=== PATIENT | female | born 1935 | race Two or more races ===

== ENCOUNTER 2016-08-23 22:44 | Inpatient (IN) | payer MEDICARE, OTHER ==
[~2016-08-23] VITALS: Ht 149.9 cm; Wt 59.0 kg
[2016-08-24 01:30] VITALS: BP 153/69
--- NOTE | 2016-08-24 01:30 | NUR ---
MS RN NOTE: RECEIVED PATIENT FROM [facility], NO ACUTE DISTRESS NOTED, FAMILY AT BEDSIDE. BREATHING EVEN AND UNLABORED, NO SOB NOTED. IV TO RIGHT WRIST IN PLACE. ORIENTED PATIENT TO ROOM AND USE OF CALL LIGHT. PATIENT HAS HOME MEDICATIONS, LISTED ALL MEDICATIONS AND ENTERED TO RECONCILED MEDICATIONS. PATIENT DAUGHTER WILL TAKE MEDICATIONS BACK HOME WITH WHEELCHAIR. AWAITING ADMIT ORDERS. BED LOCKED AND IN LOWEST POSITION, CALL LIGHT IN REACH. WILL CONTINUE TO MONITOR.
[2016-08-24] MEDS ORDERED: CLON0.1T PO (01:53)
[2016-08-24] MEDS ORDERED: BACL10TA PO (01:53)
[2016-08-24] MEDS ORDERED: FOLI1TAB16 PO (01:53)
[2016-08-24] MEDS ORDERED: ONDA4TAB11 PO (01:53)
[2016-08-24] MEDS ORDERED: SOLI5TAB PO (01:53)
[2016-08-24] MEDS ORDERED: OMEP40CA37 PO (01:53)
[2016-08-24] MEDS ORDERED: VALS160T24 PO (01:53)
[2016-08-24] MEDS ORDERED: ETOD400T2 PO (01:53)
[2016-08-24] MEDS ORDERED: ASPI-605 PO (01:53)
[2016-08-24] MEDS ORDERED: METO-302 PO (01:53)
[2016-08-24] MEDS ORDERED: ATOR20TA PO (01:53)
[2016-08-24] MEDS ORDERED: DEXT1TAB PO (01:58)
[2016-08-24] MEDS ORDERED: GUAI-671 PO (01:58)
[2016-08-24] MEDS ORDERED: ALBU18HF2 INH (01:58)
[2016-08-24 02:00] VITALS: BP 153/69
--- NOTE | 2016-08-24 02:30 | NUR ---
MS RN NOTE: CALLED COARSE WIRE DRAWER MD, AWAITING ADMIT ORDERS AND COARSE WIRE DRAWER MD TO CALL BACK. PATIENT RESTING IN BED, NO ACUTE DISTRESS NOTED. WILL CONTINUE TO MONITOR.
--- NOTE | 2016-08-24 05:30 | NUR ---
MS RN NOTE: CALLED ASSISTANT MEDIA PLANNER SERVICE AGAIN REGARDING ADMIT ORDERS. NO ORDERS ENTERED INTO SYSTEM YET. AWAITING CALL BACK. WILL CONTINUE TO MONITOR.
--- NOTE | 2016-08-24 07:05 | NUR ---
MS RN NOTE: RECEIVE CALL FROM ANSWERING SERVICE FOLLOWING UP IF TECHNOLOGY INTEGRATION SPECIALIST HAS CALLED BACK. INFORMED THAT HAVE NOT RECEIVED CALL BACK FROM DR. JACOBSEN. WILL ENDORSE TO DAY NURSE TO FOLLOW UP WITH DAY DOCTORS FOR ADMIT ORDER.
--- NOTE | 2016-08-24 07:08 | NUR ---
MS/RN AM NOTES RECEIVED PATIENT IN BED, AWAKE, ALERT, WITHOUT SOB, NO DISTRESS NOTED, DENIES PAIN. ON RA, SATURATING WELL, 95%. DR. JACOBSEN PAGED BY CHICKEN CLEANER NURSE FOR ORDER CLARIFICATIONS, AND CULLEN, AWAITING FOR RESPONSE. IV PERIPHERAL LINE ON RIGHT WRIST INTACT, PATENT. BED IN LOW POSITION, 2 SR UP FOR SAFETY, WITH CALL LIGHT WITHIJN EASY REACH. WILL CONTINUE TO MONITOR ACCORDINGLY.
[2016-08-24 08:00] VITALS: BP 139/66
[2016-08-24 10:00] VITALS: BP 153/69
[2016-08-24] MEDS ORDERED: MAG HYDROX/AL HYDROX/SIMETH 30 ML UDC PO PRN (11:30)
[2016-08-24] MEDS ORDERED: MAGNESIUM HYDROXIDE 30 ML UDC PO PRN (11:30)
[2016-08-24] MEDS ORDERED: HYDROCODONE/APAP 5/325MG 1 EACH TABLET PO PRN (11:30)
[2016-08-24] MEDS ORDERED: ACETAMINOPHEN 325 MG TABLET PO PRN (11:30)
[2016-08-24] MEDS ORDERED: ONDANSETRON 4 MG TAB.RAPDIS PO PRN (12:00)
[2016-08-24] MEDS ORDERED: CEFTRIAXONE 1 G VIAL IM SCH (12:00)
--- NOTE | 2016-08-24 12:08 | NUR ---
MS/RN NOTES DR. SRINIVASAN VISITED, EXAMINED PATIENT, WITH ORDERS ABDOMINAL US FOR ABDOMINAL PAIN, NPO STATUS INITIATED. URINE COLLECTED, SENT TO THE LAB. ALL ORDERS NOTED, CARRIED OUT, DAUGHTER MADE AWARE, SON AT THE BEDSIDE, WILL CONTINUE TO MONITOR ACCORDINGLY.
[2016-08-24] MEDS ORDERED: SECONDARY IV SET 1 EA INFUS.SET MC ONE (12:30)
[2016-08-24] MEDS ORDERED: IV SET PRIMARY PUMP SET 1 EA INFUS.SET MC ONE (12:30)
[2016-08-24] MEDS ORDERED: IV NS 0.9% 1,000 ML ONE (12:30)
[2016-08-24 12:37] LABS: BASOPHILS % (AUTO) 0.6 % (0.0-2.0); EOSINOPHILS # (AUTO) 0.2 /CMM (0.0-0.7); EOSINOPHILS % (AUTO) 2.2 % (0.0-6.0); HEMATOCRIT 35 % (33-45); HEMOGLOBIN 11.3 g/dL (11.5-14.8); LYMPHOCYTES # (AUTO) 1.1 /CMM (0.8-4.8); LYMPHOCYTES % (AUTO) 15.9 % (20.0-44.0); MEAN CORPUSCULAR HEMOGLOBIN 30 PG (26.0-33.0); MEAN CORPUSCULAR HGB CONC 33 g/dl (31.0-36.0); MEAN CORPUSCULAR VOLUME 92 fL (82-100); MONOCYTES # (AUTO) 0.5 /CMM (0.1-1.30); MONOCYTES % (AUTO) 7.9 % (2.0-12.0); NEUTROPHILS % (AUTO) 73.4 % (43.0-81.0); PLATELET COUNT (AUTO) 246 /CMM (150-450); RDW COEFFICIENT OF VARIATION 13.4 (11.5-15.0); RED BLOOD CELL COUNT(AUTO) 3.79 MIL/uL (4.0-5.2); WHITE BLOOD COUNT (AUTO) 6.8 K/uL (4.3-11.0)
[2016-08-24 12:46] LABS: CREATININE 1.4 mg/dL (0.6-1.3); PHOSPHORUS 5.9 mg/dL (2.5-4.9); POTASSIUM 4.5 mmol/L (3.5-5.1)
[2016-08-24] MEDS: TRAMADOL HCL 50 MG TABLET PO PRN (12:57)
--- NOTE | 2016-08-24 13:06 | NUR ---
MS/RN NOTES ABDOMINAL US COMPLETED, RESUMED PREVIOUS DIET PER DOCTOR'S ORDER
[2016-08-24] MEDS: CEFTRIAXONE 1 G in IV D5W 50 ML IV SCH (13:14)
[2016-08-24] MEDS ORDERED: BACLOFEN (10 MG) 10 MG TABLET PO SCH (15:00)
[2016-08-24] MEDS: BACLOFEN (10 MG) 10 MG TABLET PO SCH ×2 (15:06→21:22)
--- NOTE | 2016-08-24 15:26 | NUR ---
Social service consult requested by Dr. Jones for physican orders for life-sustaining treatment (POLST) document per patient request. SW met with patient and patient's daughter [Eliza, ]. Pt is an 80-year old South African speaking female. Pt was alert and oriented x4. SW provided the patient and her daughter with the POLST paperwork. Patient requested South African documents for translation purposes. SW provided the patient and her daughter with POLST paperwork in South African for translation and in Montenegrin to be completed. SW reviewed POLST document with patient and daughter. The patient and her daughter will complete the POLST document and have it signed by a physician.
[2016-08-24 16:00] VITALS: BP 166/71
[2016-08-24] MEDS: ONDANSETRON HCL/PF 4 MG/2 ML VIAL IVP PRN (16:55)
[2016-08-24] MEDS: METOPROLOL SUCCINATE 25 MG TAB.SR.24H PO SCH (16:59)
[2016-08-24] MEDS: OXYBUTYNIN CHLORIDE 5 MG TABLET PO SCH (17:00)
--- NOTE | 2016-08-24 17:03 | NUR ---
MS/RN NOTES PATIENT IS C/O NAUSEA NO EMESIS PRESENT, ZOFRAN GIVEN WITH EFFECTIVE RESULT
[2016-08-24 17:49] LABS: APPEARANCE,URINE SL CLOUDY (CLEAR); BILIRUBIN,URINE NEGATIVE (NEGATIVE); BLOOD, URINE NEGATIVE Ery/uL (NEGATIVE); COLOR,URINE YELLOW (YELLOW); KETONES,URINE NEGATIVE (NEGATIVE); LEUKOCYTE ESTERASE ,URINE 1+ (NEGATIVE); NITRITE, URINE POSITIVE (NEGATIVE); PH,URINE 5.5 (5.0-8.0); PROTEIN,URINE 1+ mg/dl (NEGATIVE); UGLUCOSE NEGATIVE (NEGATIVE); UROBILINOGEN,URINE 0.2 EU/dL (0.2)
[2016-08-24 18:08] LABS: ADD URINE CULTURE YES; BACTERIA,URINE Many /HPF (None Seen); RBC,URINE NONE SEEN /HPF (0-2); SQUAMOUS EPITHELIAL CELL,UR Few /HPF (None Seen); WBC,URINE 81-100 /HPF (0-3)
--- NOTE | 2016-08-24 18:12 | NUR ---
MS/RN CLOSING NOTES PATIENT IS AWAKE, ALERT, ABLE TO MAKE NEEDS KNOWN, DAUGHTER AT THE BEDSIDE. PATIENT IS ON RA, SATURATING WELL 96%. IV PERIPHERAL LINE ON RIGHT WRIST INTACT, PATENT WITH NS 0.9% 75 CC/H, TOLERATING WELL, NO S/SX FLUID OVERLOAD, ABLE TO WALK TO THE BATHROOM WITH WALKER. DENIES PAIN, KEPT CLEAN, DRY, COMFORTABLE, NEEDS MET IN TIMELY MANNER, WITH CALL LIGHT WITHIN EASY REACH. WILL ENDORSE TO THE COLLECTIONS REPRESENTATIVE NURSE ACCORDINGLY.
--- NOTE | 2016-08-24 19:40 | NUR ---
MS RN NOTE: PATIENT RESTING IN BED, NO ACUTE DISTRESS NOTED. BREATHING EVEN AND UNLABORED, NO SOB NOTED. IV TO RIGHT WRIST IN PLACE. BED LOCKED AND IN LOWEST POSITION, CALL LIGHT IN REACH. WILL CONTINUE TO MONITOR.
[2016-08-24 20:00] VITALS: BP 165/84
[2016-08-24] MEDS: IV NS 0.9% 1,000 ML IV PRN (21:22)
--- NOTE | 2016-08-25 02:04 | NUR ---
MS RN NOTE: PATIENT SLEEPING IN BED, NO ACUTE DISTRESS NOTED. BREATHING EVEN AND UNLABORED, NO SOB NOTED. IV TO RIGHT WRIST IN PLACE, INFUSING NS AT 75 ML/HR. BED LOCKED AND IN LOWEST POSITION, CALL LIGHT IN REACH. WILL CONTINUE TO MONITOR.
[2016-08-25] MEDS: BACLOFEN (10 MG) 10 MG TABLET PO SCH ×3 (05:46→20:47)
--- NOTE | 2016-08-25 06:07 | NUR ---
MS RN NOTE: PATIENT RESTING IN BED, NO ACUTE DISTRESS NOTED. BREATHING EVEN AND UNLABORED, NO SOB NOTED. IV TO RIGHT WRIST IN PLACE, INFUSING NS AT 75 ML/HR. BED LOCKED AND IN LOWEST POSITION, CALL LIGHT IN REACH. WILL ENDORSE TO DAY NURSE TO CONTINUE WITH PLAN OF CARE.
[2016-08-25 07:08] LABS: BASOPHILS % (AUTO) 0.6 % (0.0-2.0); EOSINOPHILS # (AUTO) 0.3 /CMM (0.0-0.7); EOSINOPHILS % (AUTO) 5.1 % (0.0-6.0); HEMATOCRIT 30 % (33-45); HEMOGLOBIN 9.9 g/dL (11.5-14.8); LYMPHOCYTES # (AUTO) 1.3 /CMM (0.8-4.8); LYMPHOCYTES % (AUTO) 19.9 % (20.0-44.0); MEAN CORPUSCULAR HEMOGLOBIN 30 PG (26.0-33.0); MEAN CORPUSCULAR HGB CONC 34 g/dl (31.0-36.0); MEAN CORPUSCULAR VOLUME 89 fL (82-100); MONOCYTES # (AUTO) 0.7 /CMM (0.1-1.30); MONOCYTES % (AUTO) 10.5 % (2.0-12.0); NEUTROPHILS # (AUTO) 4.2 /CMM (1.8-8.9); NEUTROPHILS % (AUTO) 63.9 % (43.0-81.0); PLATELET COUNT (AUTO) 217 /CMM (150-450); RDW COEFFICIENT OF VARIATION 12.9 (11.5-15.0); RED BLOOD CELL COUNT(AUTO) 3.32 MIL/uL (4.0-5.2); WHITE BLOOD COUNT (AUTO) 6.6 K/uL (4.3-11.0)
[2016-08-25 07:57] LABS: CALCIUM, SERUM 8.2 mg/dL (8.5-10.1); CREATININE 1.5 mg/dL (0.6-1.3); MAGNESIUM 1.8 mg/dL (1.8-2.4); PHOSPHORUS 5.5 mg/dL (2.5-4.9); POTASSIUM 4.7 mmol/L (3.5-5.1)
[2016-08-25 08:00] VITALS: BP 129/66
--- NOTE | 2016-08-25 08:00 | NUR ---
MS RN NOTES PATIENT IS IN BED, A/OX4. NO SOB ANY OR ANY S/S OF DISTRESS NOTED. IV IS INTACT AND PATENT. PATIENT DENIES ANY PAIN AT THIS TIME. BED IS IN LOW LOCKED POSITION. CALL LIGHT IS WITHIN REACH. WILL CONTINUE TO MONITOR THROUGHOUT SHIFT.
[2016-08-25] MEDS: FOLIC ACID 1 MG TABLET PO SCH (08:11)
[2016-08-25] MEDS: OXYBUTYNIN CHLORIDE 5 MG TABLET PO SCH ×2 (08:11→17:54)
[2016-08-25] MEDS: METOPROLOL SUCCINATE 25 MG TAB.SR.24H PO SCH ×2 (08:14→17:54)
--- NOTE | 2016-08-25 09:18 | NUR ---
CALLED PATIENT'S DAUGHTER, WEN. INFORMED HER TO BRING IN COMPLETED POLST FORM. DAUGHTER AGREED AND STATED SHE WOULD BRING IT IN LATE AFTERNOON.
--- NOTE | 2016-08-25 11:10 | NUR ---
PATIENT WAS COMPLAINING OF DIZZINESS AND NAUSEA. PATIENT DENIES HEADACHE OR ANY OTHER PAIN. BLOOD PRESSURE WAS AT 203/85. MANUALLY RECHECKED BLOOD PRESSURE AND BP WAS AT 210/70. MD MADE AWARE. ORDERED HYDRALAZINE PRN Q4H FOR SBP >170. WILL CARRY OUT ORDERS. WILL CONTINUE TO MONITOR PATIENT.
[2016-08-25] MEDS: hydrALAZINE HCL 25 MG TABLET PO PRN ×2 (11:21→21:35)
[2016-08-25] MEDS: CEFTRIAXONE 1 G in IV D5W 50 ML IV SCH (12:15)
[2016-08-25 16:00] VITALS: BP 153/58
[2016-08-25 19:00] VITALS: BP 151/74
--- NOTE | 2016-08-25 19:06 | NUR ---
MS RN NOTES PATIENT IS RESTING IN BED COMFORTABLY. PATIENT IS A/OX3. IV IS INTACT AND PATENT. PATIENT DENIES ANY SOB OR PAIN AT THIS TIME. NO DISTRESS NOTED. ALL NEEDS HAVE BEEN MET. BED IS IN LOW LOCKED POSITION. CALL LIGHT WITHIN REACH. WILL ENDORSE CARE TO PM SHIFT.
--- NOTE | 2016-08-25 19:20 | NUR ---
MS RN NOTES RECEIVED PT IN BED, WATCHING TV AT THIS TIME. A/O X 3, VERBALLY RESPONSIVE, MICRONESIAN SPEAKING. NO DISTRESS, NO SOB NOTED AT THIS TIME. DENIES ANY PAIN OR DISCOMFORT AT THIS TIME. PT IS AMBULATORY WITH FWW. ALL NEEDS ATTENDED. CALL LIGHT WITHIN REACH. SAFETY PRECAUTIONS OBSERVED. WILL CONTINUE TO MONITOR.
[2016-08-25] MEDS: TRAMADOL HCL 50 MG TABLET PO PRN (20:49)
[2016-08-25] MEDS: ATORVASTATIN 10 MG TABLET PO SCH (21:20)
[2016-08-25] MEDS: ONDANSETRON HCL/PF 4 MG/2 ML VIAL IVP PRN (21:26)
[2016-08-25 22:00] VITALS: BP_SYST 160; BP_SYST 190; BP_DIAS 73; BP_DIAS 78
[2016-08-26] MEDS: IV NS 0.9% 1,000 ML IV PRN (03:56)
[2016-08-26] MEDS: BACLOFEN (10 MG) 10 MG TABLET PO SCH ×3 (04:52→20:21)
--- NOTE | 2016-08-26 06:24 | NUR ---
MS RN NOTES PT IN BED, RESTING COMFORTABLY AT THIS TIME. AROUSES EASILY, A/O X 3, VERBALLY RESPONSIVE, BELIZEAN SPEAKING. NO DISTRESS, NO SOB NOTED AT THIS TIME. IV SITE ON RIGHT WRIST INTACT AND PATENT, NO S/S OF INFILTRATION NOTED. DENIES ANY PAIN OR DISCOMFORT AT THIS TIME. PT IS AMBULATORY WITH FWW. ALL NEEDS ATTENDED. CALL LIGHT WITHIN REACH. SAFETY PRECAUTIONS OBSERVED. WILL ENDORSE TO NEXT SHIFT FOR VIKAS.
[2016-08-26] MEDS: hydrALAZINE HCL 25 MG TABLET PO PRN (07:05)
[2016-08-26] MEDS: ONDANSETRON HCL/PF 4 MG/2 ML VIAL IVP PRN (07:07)
[2016-08-26] MEDS: METOPROLOL SUCCINATE 25 MG TAB.SR.24H PO SCH ×2 (07:49→16:38)
[2016-08-26 08:00] VITALS: BP 169/74
--- NOTE | 2016-08-26 08:00 | NUR ---
MS RN OPENING NOTES RECEIVED REPORT WITH PATIENT A/OX3. PATIENT IS RESTING IN BED. PATIENT COMPLAINING OF DIZZINESS AND NAUSEA. PM SHIFT ADMINISTERED HYDRALAZINE AND ZOFRAN. NO SOB NOTED. PATIENT DENIES PAIN. IV IS PATENT AND INTACT. BED IS IN LOW LOCKED POSITION. CALL LIGHT IS WITHIN REACH. WILL CONTINUE TO MONITOR THROUGHOUT SHIFT.
[2016-08-26] MEDS: OXYBUTYNIN CHLORIDE 5 MG TABLET PO SCH ×2 (08:41→16:37)
[2016-08-26] MEDS: FOLIC ACID 1 MG TABLET PO SCH (08:41)
[2016-08-26] MEDS ORDERED: AMLODIPINE BESYLATE 10 MG TABLET PO SCH (09:00)
[2016-08-26] MEDS ORDERED: hydrALAZINE HCL 25 MG TABLET PO PRN (10:30)
--- NOTE | 2016-08-26 10:45 | NUR ---
MS RN NOTES PATIENT BLOOD PRESSURE CURRENTLY AT 189/60. MD MADE AWARE AND WAS NOTIFIED OF THE PATIENT'S UPWARD TRENDING BP FLUCTUATIONS. ORDERS OBTAINED FROM DR. ARNOLD TO CONTINUE TO MONITOR PATIENT.
--- NOTE | 2016-08-26 10:50 | NUR ---
MS RN NOTES DR. RODAS WAS NOTIFIED OF PATIENT'S UPWARD TRENDING BLOOD PRESSURE FLUCTUATIONS. ORDERS RECEIVED AND WILL BE CARRIED OUT.
[2016-08-26] MEDS ORDERED: CLONIDINE HCL 0.1 MG TABLET PO PRN (11:00)
[2016-08-26] MEDS: NIFEdipine XL (30MG) 30 MG TAB PO SCH (11:20)
[2016-08-26] MEDS: CEFTRIAXONE 1 G in IV D5W 50 ML IV SCH (12:08)
[2016-08-26 16:00] VITALS: BP 114/50
--- NOTE | 2016-08-26 19:02 | NUR ---
MS RN CLOSING NOTES PATIENT IS A/O X3. PATIENT'S DAUGHTER AT THE BEDSIDE. IV IS PATENT AND INTACT. NO SOB OR S/S OF DISTRESS NOTED. BED IN LOW LOCKED POSITION. CALL LIGHT WITHIN REACH. ALL PATIENT NEEDS HAVE BEEN MET. WILL ENDORSE CARE TO PM SHIFT.
--- NOTE | 2016-08-26 19:30 | NUR ---
MS RN NOTES RECEIVED PT SITTING UP IN BED, AWAKE, WATCHING TV AT THIS TIME. A/O X 3 , VERBALLY RESPONSIVE.DAUGHTER WEN AT BEDSIDE. PT WITH NO DISTRESS , NO SOB AT THIS TIME. IV SITE ON RIGHT WRIST INTACT AND PATENT, WITH NO S/S OF INFILTRATION NOTED. IVF INFUSING WELL. DISCUSSED WITH THE PT AND THE DTR REGARDING PLAN OF CARE, VERBALIZES UNDERSTANDING. DENIES ANY PAIN OR DISCOMFORT AT THIS TIME. ALL NEEDS ATTENDED. CALL LIGHT WITHIN REACH . WILL CONTINUE TO MONITOR.
[2016-08-26 20:00] VITALS: BP 109/54
[2016-08-26] MEDS: TRAMADOL HCL 50 MG TABLET PO PRN (20:17)
[2016-08-26 22:00] VITALS: BP 129/69
[2016-08-26] MEDS ORDERED: BACLOFEN (10 MG) 10 MG TABLET PO SCH (22:00)
[2016-08-26] MEDS: ATORVASTATIN 10 MG TABLET PO SCH (22:27)
[2016-08-27] MEDS: BACLOFEN (10 MG) 10 MG TABLET PO SCH ×3 (05:23→21:02)
[2016-08-27 06:30] LABS: BASOPHILS % (AUTO) 0.2 % (0.0-2.0); EOSINOPHILS # (AUTO) 0.1 /CMM (0.0-0.7); EOSINOPHILS % (AUTO) 0.7 % (0.0-6.0); HEMATOCRIT 33 % (33-45); HEMOGLOBIN 11.1 g/dL (11.5-14.8); LYMPHOCYTES % (AUTO) 10.9 % (20.0-44.0); MEAN CORPUSCULAR HEMOGLOBIN 30 PG (26.0-33.0); MEAN CORPUSCULAR HGB CONC 34 g/dl (31.0-36.0); MEAN CORPUSCULAR VOLUME 89 fL (82-100); MONOCYTES # (AUTO) 0.8 /CMM (0.1-1.30); MONOCYTES % (AUTO) 8.3 % (2.0-12.0); NEUTROPHILS # (AUTO) 7.7 /CMM (1.8-8.9); NEUTROPHILS % (AUTO) 79.9 % (43.0-81.0); PLATELET COUNT (AUTO) 251 /CMM (150-450); RDW COEFFICIENT OF VARIATION 12.3 (11.5-15.0); RED BLOOD CELL COUNT(AUTO) 3.66 MIL/uL (4.0-5.2); WHITE BLOOD COUNT (AUTO) 9.6 K/uL (4.3-11.0)
--- NOTE | 2016-08-27 06:42 | NUR ---
MS RN NOTES PT RESTING IN BED, A/O X 3 , AROUSES EASILY, VERBALLY RESPONSIVE. PT WITH NO DISTRESS , NO SOB AT THIS TIME. IV SITE ON RIGHT WRIST INTACT AND PATENT, WITH NO S/S OF INFILTRATION NOTED. IVF INFUSING WELL. DENIES ANY PAIN OR DISCOMFORT AT THIS TIME. NO C/O N/V. ALL NEEDS ATTENDED. CALL LIGHT WITHIN REACH . WILL ENDORSE TO NEXT SHIFT FOR VIKAS.
[2016-08-27 07:01] LABS: CALCIUM, SERUM 7.9 mg/dL (8.5-10.1); CREATININE 1.1 mg/dL (0.6-1.3); MAGNESIUM 1.9 mg/dL (1.8-2.4); PHOSPHORUS 4.1 mg/dL (2.5-4.9); POTASSIUM 3.8 mmol/L (3.5-5.1)
--- NOTE | 2016-08-27 07:30 | NUR ---
AM RN NOTE Received patient sleeping comfortably in her bed arouses upon touch. Skin warm and dry to touch. IV site intact and patent. Bed in low locked position. Will continue to monitor.
[2016-08-27 08:00] VITALS: BP 136/71
[2016-08-27] MEDS: ONDANSETRON HCL/PF 4 MG/2 ML VIAL IVP PRN (08:06)
[2016-08-27] MEDS: OXYBUTYNIN CHLORIDE 5 MG TABLET PO SCH ×2 (08:07→16:04)
[2016-08-27] MEDS: FOLIC ACID 1 MG TABLET PO SCH (08:07)
[2016-08-27] MEDS: NIFEdipine XL (30MG) 30 MG TAB PO SCH (08:07)
[2016-08-27] MEDS: ASPIRIN EC 81 MG TABLET.DR PO SCH (08:07)
[2016-08-27] MEDS: CLONIDINE HCL 0.1 MG TABLET PO SCH (08:08)
[2016-08-27] MEDS: METOPROLOL SUCCINATE 25 MG TAB.SR.24H PO SCH ×2 (08:08→16:04)
[2016-08-27] MEDS: IV NS 0.9% 1,000 ML IV PRN (10:04)
[2016-08-27] MEDS: CEFTRIAXONE 1 G in IV D5W 50 ML IV SCH (11:41)
--- NOTE | 2016-08-27 12:12 | NUR ---
AM RN NOTE Patient's IV site noted with leakage, re inserted new site on RAC #22.
[2016-08-27 16:00] VITALS: BP 158/78
[2016-08-27] MEDS: LORAZEPAM 0.5 MG TABLET PO PRN (16:30)
--- NOTE | 2016-08-27 16:35 | NUR ---
AM RN NOTE Patient awake, anxious and holding side rails. Daughter at bedside and requesting for antianxiety medication. CN (West) made aware. V/S BP158/78 T98.0 P71 R18. Called [facility] [employer] WORKER FORGE with new order obtained for Ativan, noted and carried out. Medication given as ordered. Will continue to monitor.
--- NOTE | 2016-08-27 17:15 | NUR ---
AM RN NOTE Pt calm and resting in her bed with eyes closed. Daughter at bedside.
--- NOTE | 2016-08-27 18:41 | NUR ---
AM RN NOTE Patient sleeping in her bed comfortably, no acute distress noted. Family at bedside. Will endorse care to next shift.
--- NOTE | 2016-08-27 19:00 | NUR ---
MS RN NOTES RECEIVED PATIENT IN BED AWAKE, ALERT AND ORIENTED X 3. IN STABLE CONDITION NO S/S OF DISTRESS NOTED. VERBALLY RESPONSIVE WITH NO C/O PAIN OR DISCOMFORTS VOICED. IV SITE INTACT W/ NO S/S OF INFILTRATION NOTED. CALL LIGHT WITHIN REACH. BED AT LOW POSITION AND LOCKED FOR SAFETY. WILL CONTINUE TO MONITOR ACCORDINGLY.
[2016-08-27 20:00] VITALS: BP 101/43
[2016-08-27] MEDS: ATORVASTATIN 10 MG TABLET PO SCH (21:02)
[2016-08-28] MEDS: IV NS 0.9% 1,000 ML IV PRN (04:10)
[2016-08-28] MEDS: BACLOFEN (10 MG) 10 MG TABLET PO SCH ×2 (04:10→13:00)
--- NOTE | 2016-08-28 06:32 | NUR ---
MS RN CLOSING NOTES PATIENT COMFORTABLY IN BED ASLEEP AND EASILY AWAKEN, HEAD OF BED ELEVATED FOR BETTER LUNG EXPANSION AND BETTER CIRCULATION, TOLERATING ROOM AIR, SP02 96% R.A ALERT AND VERBALLY X 3 NO S/S OF DISTRESS, NORWEGIAN SPEAKING, NS AT 75CC/HR RUNNING TOLERATED WELL, IV SITE INTACT W/ NO S/S OF INFILTRATION NOTED. RESPIRATIONS EVEN UNLABORED BREATH SOUNDS. APICAL PULSE REGULAR; GOOD SKIN CARE PROVIDED. PATIENT IN STABLE CONDITION WITH NO SOB NO S/S OF DISTRESS NO NAUSEA AND VOMITING NO HEADACHE NO PAIN, NO CHEST PAIN SAFETY ENVIRONMENT PROVIDED. FREE OF CLUTTERS, SAFE HAZARD FREE ENVIRONMENT. NEEDS ATTENDED AND ANTICIPATED, NURSING CARE RENDERED, KEPT CLEAN AND DRY AND COMFORTABLE. ALL DUE MEDS WAS GIVEN. CALL LIGHT IN REACH, BED LOWERED AND LOCKED, SR X2 FOR SAFETY AND WILL ENDORSE CONTINUE PLAN OF CARE. ON ATB WITH NO A/R NOTED.
--- NOTE | 2016-08-28 07:30 | NUR ---
RECEIVED PT. ALERT AND ORIENTED X3,SOMALI SPEAKING.VS STABLE.
[2016-08-28 08:00] VITALS: BP 149/74
--- NOTE | 2016-08-28 08:40 | NUR ---
CALLY BARAHONA STUDENT SUPPORT SERVICES DIRECTOR IN TO SEE PT. PLANS FOR DC TODAY.DTR. AT BEDSIDE.
--- NOTE | 2016-08-28 08:50 | NUR ---
CALLY BARAHONA BROUGHT BACK IN TO RM. BY RN.PT. HAVING GENERALIZED TWITCHING.DTR. STATES THIS IS NEW FOR PT.MISSILE PAD MECHANIC INFORMED.
--- NOTE | 2016-08-28 09:00 | NUR ---
CT OF HEAD ORDERED,AND COMPLETED.ADDITIONALLY CALLY TEXTED DR. WALLER FOR CONSULT.CASE MGMT. TO FOLLOW UP ON DC PLANS.DTR. AT BEDSIDE.
[2016-08-28] MEDS: METOPROLOL SUCCINATE 25 MG TAB.SR.24H PO SCH ×2 (10:43→17:00)
[2016-08-28] MEDS: OXYBUTYNIN CHLORIDE 5 MG TABLET PO SCH ×2 (10:43→17:00)
[2016-08-28] MEDS: ASPIRIN EC 81 MG TABLET.DR PO SCH (10:43)
[2016-08-28] MEDS: CLONIDINE HCL 0.1 MG TABLET PO SCH (10:44)
[2016-08-28] MEDS: FOLIC ACID 1 MG TABLET PO SCH (10:44)
[2016-08-28] MEDS: NIFEdipine XL (30MG) 30 MG TAB PO SCH (10:57)
[2016-08-28] MEDS: LORAZEPAM 0.5 MG TABLET PO PRN (11:06)
--- NOTE | 2016-08-28 11:06 | NUR ---
GIVEN ATIVAN PO.
--- NOTE | 2016-08-28 11:30 | NUR ---
APPETITE GOOD AND EATING WITH HELP,IV IN PLACE.PT. COOPERATIVE.ABLE TO TAKE MEDS AND SWALLOW.
--- NOTE | 2016-08-28 13:00 | NUR ---
ATE GOOD AMT. OF LUNCH.DTR. AT BEDSIDE.PT. CHG. SEVERAL TIMES FOR INCONTINENCY OF URINE.
--- NOTE | 2016-08-28 15:30 | NUR ---
PT. AGAIN WITH TWITCHING-A LITTLE MORE EXAGGERATED.SEEMS TO BE GENERALIZED.CHARGERN IN TO RM.CONTACTED CALLY BARAHONA.
--- NOTE | 2016-08-28 15:53 | NUR ---
GIVEN BENADRYL 25 MG IV.DTR. REMAINS AT BEDSIDE.
[2016-08-28 16:00] VITALS: BP 100/55
[2016-08-28] MEDS ORDERED: diphenhydrAMINE HCL 50 MG/ML VIAL IV ONE (16:00)
[2016-08-28] MEDS ORDERED: BACLOFEN (10 MG) 10 MG TABLET PO PRN (16:00)
--- NOTE | 2016-08-28 16:15 | NUR ---
NOW PT. ASLEEP.
[2016-08-28] MEDS: CEPHALEXIN MONOHYDRATE 250 MG CAPSULE PO SCH (17:00)
--- NOTE | 2016-08-28 18:40 | NUR ---
UNABLE TO GIVE FRANC. MEDS DUE TO GROGGINESS.FAMILY AT BEDSIDE.
--- NOTE | 2016-08-28 19:30 | NUR ---
RN NOTES: RECEIVED LYING COMFORTABLY IN BED,SURROUNDED BY HER RELATIVES, ALERT AND ORRIENTEDX3, MONTSERRATIAN SPEAKING,IVF ON N/S AT 75ML/HR ONGOING,RAC G#20 PATENT AND INTACT, CALL LIGHT WITHIN EASY REACH, BED LOW AND LOCKED, FALL SAFETY AND ASPIRATION PRECAUTION OBSERVE.INSTRUCT RELATIVES TO INFORM NURSES IF THEY ARE LEAVING.
[2016-08-28 20:00] VITALS: BP 106/60
[2016-08-28] MEDS: ATORVASTATIN 10 MG TABLET PO SCH (22:51)
--- NOTE | 2016-08-29 01:00 | NUR ---
RN NOTES: MORNING CARE DONE, NO COMPLAINTS OF PAIN OR DISCOMFORT, NO ALTERED IN LEVEL OF CONSCIOUSNESS, NO FITS NOTED.ASLEEP AT SHORT INTERVALS.
--- NOTE | 2016-08-29 06:56 | NUR ---
RN NOTES: AWAKE,BLOOD TEST DONE,CALL LIGHT WITHIN EASY REACH, ABLE TO MAKE NEEDS KNOWN, FALL SAFETY, SEIZURE PRECAUTION OBSERVE.ENDORSED TO MORNING SHIFT FOR CONTINUITY OF CARE.
--- NOTE | 2016-08-29 07:15 | NUR ---
MS RN OPENING NOTES RECEIVED PT. FROM NIGHTSHIFT NURSE IN STABLE CONDITION. PT. IS AWAKE AND RESTING COMFORTABLY IN BED. A/O X3. SAMMARINESE SPEAKING. NO SOB OR SIGNS OF DISTRESS NOTED. IV PRESENT ON RIGHT AC 20G PATENT AND INTACT, HL. BED IN LOW LOCKED POSITION, SIDE RAILS UP X2, CALL LIGHT WITHIN REACH. WILL CONTINUE TO MONITOR.
[2016-08-29 07:28] LABS: CALCIUM, SERUM 7.9 mg/dL (8.5-10.1); CREATININE 1.5 mg/dL (0.6-1.3); POTASSIUM 4.3 mmol/L (3.5-5.1)
[2016-08-29 08:00] VITALS: BP 128/71
[2016-08-29] MEDS: ASPIRIN EC 81 MG TABLET.DR PO SCH (08:18)
[2016-08-29] MEDS: FOLIC ACID 1 MG TABLET PO SCH (08:19)
[2016-08-29] MEDS: CEPHALEXIN MONOHYDRATE 250 MG CAPSULE PO SCH (08:19)
[2016-08-29] MEDS: METOPROLOL SUCCINATE 25 MG TAB.SR.24H PO SCH (08:19)
[2016-08-29] MEDS: OXYBUTYNIN CHLORIDE 5 MG TABLET PO SCH (08:19)
[2016-08-29 08:20] VITALS: BP 128/71
[2016-08-29] MEDS: NIFEdipine XL (30MG) 30 MG TAB PO SCH (08:20)
--- NOTE | 2016-08-29 14:55 | NUR ---
MS LULÚ NOTES PT. WAS WHEELED OFF THE UNIT IN STABLE CONDITION BY STACI. SHE WAS SAFELY TRANSFERRED FROM WHEELCHAIR TO HER PRIVATE CAR. ALL NEEDS MET DURING SHIFT AND ORDERS CARRIED OUT ACCORDINGLY. Addendum: 08/29/16 at 1458 by TERRA DIXON RN PLEASE DISREGARD THIS NOTE
--- NOTE | 2016-08-29 15:12 | NUR ---
MS RN NOTES PT. WAS TRANSFERRED SAFELY OFF THE UNIT ON A GURNEY VIA AMBULANCE IN STABLE CONDITION. ALL NEEDS MET AND ORDERS CARRIED OUT ACCORDINGLY.
== END 2016-08-29 15:10 | DRG 689 ==
LOC: MED 08-24 00:53
PROVIDERS: ADMIT Nurse Practitioner Acute Care; ATTEND Nurse Practitioner Acute Care
DX: N30.00 Acute cystitis without hematuria (principal); N17.0 Acute kidney failure with tubular necrosis; Z66 Do not resuscitate; M19.90 Unspecified osteoarthritis, unspecified site; M81.0 Age-related osteoporosis without current pathological fracture; I12.9 Hypertensive chronic kidney disease with stage 1 through stage 4 chronic kidney disease, or unspecified chronic kidney disease; Z96.652 Presence of left artificial knee joint; Z96.642 Presence of left artificial hip joint; K81.9 Cholecystitis, unspecified; R42 Dizziness and giddiness; Z79.1 Long term (current) use of non-steroidal anti-inflammatories (NSAID); N18.9 Chronic kidney disease, unspecified; Z87.440 Personal history of urinary (tract) infections
CPT/HCPCS: 36415; 70450-TC; 76700-TC; 80048-TC; 80061-TC; 81000-TC; 82962-TC; 83735-TC; 84100-TC; 85025-TC; 87081-TC; 87086-TC; 97001-TC; 97110-TC; 97116-TC; 97530-TC; J0696; J1200; J2405; J7030; J7060; Q0162; Z7610

== ENCOUNTER → 2019-11-20 | Outpatient (CLI) | payer MEDICARE, MEDICAID ==
[~2019-11-20] MED LIST: ALBU18HF2 INH; ASPI-605 PO; ATOR20TA PO; BACL10TA PO; CLON0.1T PO; DEXT1TAB PO; ETOD400T2 PO; FOLI1TAB16 PO; GUAI-671 PO; METO25TA4 PO; OMEP40CA13 PO; ONDA4TAB11 PO; SOLI5TAB2 PO; VALS160T29 PO
== END | disposition home or self-care (01) ==
LOC: MSC 15:00
PROVIDERS: ATTEND Anesthesiology
DX: M54.16 Radiculopathy, lumbar region (principal); M40.299 Other kyphosis, site unspecified; M62.830 Muscle spasm of back; M25.551 Pain in right hip; M25.9 Joint disorder, unspecified; I10 Essential (primary) hypertension; M19.90 Unspecified osteoarthritis, unspecified site; M81.0 Age-related osteoporosis without current pathological fracture

== ENCOUNTER → 2019-12-04 | Outpatient (CLI) | payer MEDICARE, MEDICAID ==
[~2019-12-04] MED LIST changes: +methylPREDNISolone ACETATE 80 MG/ML VIAL ONE
== END | disposition home or self-care (01) ==
LOC: MSC 14:45
PROVIDERS: ATTEND Anesthesiology
DX: M51.36 Other intervertebral disc degeneration, lumbar region (principal); M47.27 Other spondylosis with radiculopathy, lumbosacral region; M62.830 Muscle spasm of back; M40.299 Other kyphosis, site unspecified; M25.9 Joint disorder, unspecified; M25.551 Pain in right hip; M81.0 Age-related osteoporosis without current pathological fracture; M19.90 Unspecified osteoarthritis, unspecified site; I10 Essential (primary) hypertension; Z79.891 Long term (current) use of opiate analgesic

== ENCOUNTER 2019-12-20 09:45 | Outpatient (CLI) | payer MEDICARE, MEDICAID ==
[~2019-12-20 09:45] MED LIST changes: -methylPREDNISolone ACETATE 80 MG/ML VIAL ONE
== END 2019-12-20 23:59 | disposition home or self-care (01) ==
LOC: LAB 09:45
PROVIDERS: ATTEND Anesthesiology
DX: Z01.812 Encounter for preprocedural laboratory examination (principal); Z20.828 Contact with and (suspected) exposure to other viral communicable diseases
CPT/HCPCS: 87426; C9803

== ENCOUNTER 2019-12-25 05:56 | Day surgery (SDC) | payer MEDICARE, OTHER ==
--- NOTE | 2019-12-25 06:20 | NUR ---
MS RN NOTE: Received patient. Witnessed patient signed surgical consent, anesthesia consent, and blood transfusion consent. Insert IV access on right AC, 20 gauge, checked vitals, conducted MRSA swab, and completed procedure check list. Endorse patient to Am nurse.
[2019-12-25] MEDS ORDERED: ANESTHESIA TRAY IN PYXIS 1 EA TRAY MC ONE (07:17)
[2019-12-25] MEDS ORDERED: IOHEXOL 240MG/ML 50 ML IV ONE (07:31)
[2019-12-25] MEDS ORDERED: BUPIVACAINE 0.25% 75 MG/30 ML VIAL ONE (07:32)
[2019-12-25] MEDS ORDERED: TRIAMCINOLONE ACETONIDE SUSP 40 MG/ML 1 ML ONE (07:32)
[2019-12-25] MEDS ORDERED: LIDOCAINE HCL/MPF 1% 30 ML VIAL IJ ONE (07:35)
--- NOTE | 2019-12-25 07:38 | NUR ---
MS/RN NOTES PATIENT IS OUT IN THE UNIT CONTINUOUS MINER OPERATOR HELPER BY OR NURSE.
--- NOTE | 2019-12-25 07:48 | NUR ---
MS/RN OPENING NOTES RECEIVED PATIENT ON BED AWAKE, ALERT AND ORIENTED X3-4. WOLOF SPEAKING. DENIES PAIN AT THIS TIME. PATIENT IN NO APPARENT RESPIRATORY DISTRESS NOTED. PATIENT IS FOR DAY SURGERY. WILL CONTINUE TO MONITOR
[2019-12-25] MEDS ORDERED: MIDAZOLAM HCL 2 MG/2ML VIAL ONE (08:38)
--- NOTE | 2019-12-25 10:00 | NUR ---
MS/RN NOTES PATIENT CAME BACK FROM PACU. RECEIVED REPORT RESUME ALL HOME MEDS, RESUME DIET. FOLLOW WITHIN 2-3 WEEKS. VITAL SIGN TAKEN BP 149/54 P 84 T 98 SAO2 93. WILL CONTINUE TO MONITOR.
--- NOTE | 2019-12-25 13:00 | NUR ---
MS/RN NOTES VITAL SIGN 1030 BP140/62 P 84 RR 18 T 98.1 SAO2 96%, 1100 BP 140/65 P 86 RR 18 T 98 SAO2 98%. 1130 BP 135/70 P 82 T 98 RR 18 SAO2 98% 1230 BP 138/70 P 80 T 98 RR 18 SAO2 99%. WILL CONTINUE TO MONITOR.
--- NOTE | 2019-12-25 13:40 | NUR ---
MS/RN NOTES PATIENT IS ALERT AND ORIENTED X4. IN ROOM AIR AND SATURATION IS AT 99%. RESPIRATION REGULAR AND UNLABORED. PATIENT DENIES PAIN AT THIS TIME. PATIENT IN NO APPARENT RESPIRATORY DISTRESS NOTED. PATIENT WAS GIVEN DISCHARGED INSTRUCTIONS AND PATIENT VERBALIZED UNDERSTANDING. THE PATIENT LEFT IN THE HOSPITAL IN STABLE CONDITION AT 1320,ACCOMPANIED BY SATHISH THE DAUGHTER VIA PRIVATE CAR.
== END 2019-12-25 19:00 | disposition home or self-care (01) ==
LOC: DS 05:56 → UNDOADMIN 05:57 → MED 05:57 → UNDODISIN 13:30 → DS 19:00
PROVIDERS: ATTEND Anesthesiology
DX: M54.5 Low back pain (principal); M46.86 Other specified inflammatory spondylopathies, lumbar region; I10 Essential (primary) hypertension; Z79.899 Other long term (current) drug therapy
CPT/HCPCS: 64493; 64494; 64495; 72020; A6402; J2250; J3490 ×2; Q9966; G0378

== ENCOUNTER 2019-12-31 15:00 | Outpatient (CLI) | payer MEDICARE, OTHER | END 2019-12-31 23:59 | disposition home or self-care (01) | LOC: MSC 15:00 | PROVIDERS: ATTEND Internal Medicine | DX: G25.81 Restless legs syndrome (principal); I12.9 Hypertensive chronic kidney disease with stage 1 through stage 4 chronic kidney disease, or unspecified chronic kidney disease; N18.9 Chronic kidney disease, unspecified; M54.9 Dorsalgia, unspecified; M19.90 Unspecified osteoarthritis, unspecified site; G31.84 Mild cognitive impairment of uncertain or unknown etiology; K29.70 Gastritis, unspecified, without bleeding; M75.100 Unspecified rotator cuff tear or rupture of unspecified shoulder, not specified as traumatic; K86.2 Cyst of pancreas; R26.9 Unspecified abnormalities of gait and mobility; Z79.891 Long term (current) use of opiate analgesic; Z79.899 Other long term (current) drug therapy ==

== ENCOUNTER → 2020-02-05 | Outpatient (CLI) | payer MEDICARE, OTHER ==
[~2020-02-05] MED LIST changes: +MYRBETRIQ PO
== END | disposition home or self-care (01) ==
LOC: MSC 14:30
PROVIDERS: ATTEND Anesthesiology
DX: M51.36 Other intervertebral disc degeneration, lumbar region (principal); M47.27 Other spondylosis with radiculopathy, lumbosacral region; M40.299 Other kyphosis, site unspecified; M62.830 Muscle spasm of back; M25.9 Joint disorder, unspecified; M25.551 Pain in right hip; I10 Essential (primary) hypertension; M19.90 Unspecified osteoarthritis, unspecified site; M81.0 Age-related osteoporosis without current pathological fracture; R32 Unspecified urinary incontinence; C44.309 Unspecified malignant neoplasm of skin of other parts of face; Z79.891 Long term (current) use of opiate analgesic

== ENCOUNTER → 2020-02-11 | Outpatient (CLI) | payer MEDICARE, OTHER | END | disposition home or self-care (01) | LOC: LAB 09:00 | PROVIDERS: ATTEND Anesthesiology | DX: Z01.812 Encounter for preprocedural laboratory examination (principal); Z20.828 Contact with and (suspected) exposure to other viral communicable diseases | CPT/HCPCS: 87426; C9803 ×2; U0003 ==

== ENCOUNTER 2020-02-14 05:00 | Day surgery (SDC) | payer MEDICARE, OTHER ==
[2020-02-14] VITALS (9 sets, daily range): BP systolic 160–179; BP diastolic 68–88
[~2020-02-14 05:00] MED LIST changes: -MYRBETRIQ PO
--- NOTE | 2020-02-14 07:35 | NUR ---
PT BIB DAUGHTER FOR DAY SURGERY. PT WILL BE HAVING A BILATERAL FACET BLOCK JOINT INJECTION WITH DR. TAYLOR. VS CHECKED. PT IS AOX4. IRISH SPEAKING ONLY BUT ABLE TO UNDERSTAND SOME NORTHERN IRISH. NO CARDIAC OR RESP DISTRESS NOTED. NO SOB NOTED. SATURATING WELL ON ROOM AIR. PT PLACED IN HER ROOM IN 324-1. PER PT SHE HAS BEEN NPO SINCE MIDNIGHT LAST NIGHT.
[2020-02-14] MEDS ORDERED: MYRBETRIQ PO (08:55)
[2020-02-14] MEDS ORDERED: methylPREDNISolone ACETATE 80 MG/ML VIAL ONE (09:43)
[2020-02-14] MEDS ORDERED: LIDOCAINE 1% INJ 50 ML MDV IJ ONE (09:43)
[2020-02-14] MEDS ORDERED: IOHEXOL 50 ML IV ONE (09:44)
[2020-02-14] MEDS ORDERED: FENTANYL PF 100MCG/2ML AMPUL ONE (10:02)
[2020-02-14] MEDS ORDERED: hydrALAZINE HCL IV 20 MG VIAL ONE (10:37)
--- NOTE | 2020-02-14 11:15 | NUR ---
pt back from procedure. s/p bilateral facet block joint injections. pt aox4. reponsive. no cardiac or resp distress noted.
--- NOTE | 2020-02-14 12:31 | NUR ---
per daughter taylor she will scrap picker pt at 1400 since she is still at work
--- NOTE | 2020-02-14 14:00 | NUR ---
PT WAS PICKED UP BY DAUGHTER MIA VIA PRIVATE CAR IN STABLE CONDITION. NO CARDIAC OR RESP DISTRESS NOTED. NO SOB NOTED. VS CHECKED PRIOR TO D/C. NO COMPLAINTS OF PAIN OR DISCOMFORT. PT HAD NO OTHER BELONGINGS EXCEPT FOR THE CLOTHES AND SHOES THAT SHE WAS WEARING WHEN SHE CAME IN. PT LEFT IN STABLE CONDITION.
[2020-02-14] MEDS ORDERED: CLONIDINE HCL 0.1 MG TABLET PO PRN (14:30)
[2020-02-14] MEDS ORDERED: METOPROLOL SUCCINATE 25 MG TAB.SR.24H PO SCH (17:00)
[2020-02-14] MEDS ORDERED: BACLOFEN (10 MG) 10 MG TABLET PO SCH (22:00)
[2020-02-14] MEDS ORDERED: Medication Not On Formulary EA (Atorvastatin Calcium (Lipitor) 1 TAB) PO SCH (22:00)
[2020-02-15] MEDS ORDERED: CLONIDINE HCL 0.1 MG TABLET PO SCH (09:00)
[2020-02-15] MEDS ORDERED: FOLIC ACID 1 MG TABLET PO SCH (09:00)
[2020-02-15] MEDS ORDERED: Medication Not On Formulary EA (Omeprazole 1 CAP) PO SCH (09:00)
[2020-02-15] MEDS ORDERED: Medication Not On Formulary EA (Solifenacin Succinate (Vesicare) 1 TAB) PO SCH (09:00)
== END 2020-02-14 18:00 | disposition home or self-care (01) ==
LOC: DS 05:00 → MED 07:08 → UNDOADMIN 07:08 → UNDODISIN 14:00 → DS 18:00
PROVIDERS: ATTEND Anesthesiology
DX: M54.9 Dorsalgia, unspecified (principal); I10 Essential (primary) hypertension; M19.90 Unspecified osteoarthritis, unspecified site; M47.816 Spondylosis without myelopathy or radiculopathy, lumbar region
CPT/HCPCS: 64493; 64494; 64495; 72020; A6402; J0360; J1040; J3010; J3490 ×2; Q9967; G0378

== ENCOUNTER 2020-02-29 15:05 | Outpatient (CLI) | payer MEDICARE, OTHER ==
[~2020-02-29 15:05] MED LIST changes: -ALBU18HF2 INH; -DEXT1TAB PO; -GUAI-671 PO; +MYRBETRIQ PO; -ONDA4TAB11 PO
== END 2020-02-29 23:59 | disposition home or self-care (01) ==
LOC: MSC 15:05
PROVIDERS: ATTEND Internal Medicine
DX: M54.9 Dorsalgia, unspecified (principal); G25.81 Restless legs syndrome; I12.9 Hypertensive chronic kidney disease with stage 1 through stage 4 chronic kidney disease, or unspecified chronic kidney disease; N18.9 Chronic kidney disease, unspecified; M19.90 Unspecified osteoarthritis, unspecified site; G31.84 Mild cognitive impairment of uncertain or unknown etiology; K29.70 Gastritis, unspecified, without bleeding; M75.101 Unspecified rotator cuff tear or rupture of right shoulder, not specified as traumatic; K86.2 Cyst of pancreas; R26.9 Unspecified abnormalities of gait and mobility; Z79.891 Long term (current) use of opiate analgesic; Z79.899 Other long term (current) drug therapy

== ENCOUNTER 2020-05-23 14:38 | Outpatient (CLI) | payer MEDICARE, OTHER ==
[2020-05-23 16:14] LABS: BASOPHILS % (AUTO) 0.2 % (0.0-2.0); EOSINOPHILS % (AUTO) 4.7 % (0.0-6.0); HEMATOCRIT 32 % (33-45); HEMOGLOBIN 10.5 g/dL (11.5-14.8); LYMPHOCYTES # (AUTO) 0.6 /CMM (0.8-4.8); LYMPHOCYTES % (AUTO) 9.4 % (20.0-44.0); MEAN CORPUSCULAR HGB CONC 33 g/dl (31.0-36.0); MEAN CORPUSCULAR VOLUME 95 fL (82-100); MONOCYTES # (AUTO) 0.4 /CMM (0.1-1.30); MONOCYTES % (AUTO) 6.6 % (2.0-12.0); NEUTROPHILS # (AUTO) 5.1 /CMM (1.8-8.9); NEUTROPHILS % (AUTO) 79.1 % (43.0-81.0); PLATELET COUNT (AUTO) 264 /CMM (150-450); RED BLOOD CELL COUNT(AUTO) 3.36 MIL/uL (4.0-5.2); WHITE BLOOD COUNT (AUTO) 6.4 K/uL (4.3-11.0)
[2020-05-23 16:30] LABS: ALANINE AMINOTRANSFERASE 9 U/L (12-78); ALBUMIN 3.4 g/dL (3.4-5.0); ALKALINE PHOSPHATASE 17 U/L (46-116); ASPARTATE AMINOTRANSFERASE 12 U/L (15-37); BILIRUBIN,TOTAL 0.3 mg/dL (0.2-1.0); CALCIUM, SERUM 9.1 mg/dL (8.5-10.1); CARBON DIOXIDE 26 mmol/L (21-32); CHLORIDE 106 mmol/L (98-107); CREATININE 1.4 mg/dL (0.6-1.3); GLUCOSE 150 mg/dL (74-106); MAGNESIUM 2.3 mg/dL (1.8-2.4); PHOSPHORUS 5.3 mg/dL (2.5-4.9); POTASSIUM 4.4 mmol/L (3.5-5.1); SODIUM SERUM 141 mmol/L (136-145); TOTAL PROTEIN, SERUM 6.9 g/dL (6.4-8.2); UREA NITROGEN, BLOOD 38 mg/dL (7-18)
[2020-05-23 16:37] LABS: THYROID STIMULATING HORMONE 0.177 uIU/mL (0.358-3.74)
== END 2020-05-23 23:59 | disposition home or self-care (01) ==
LOC: MSC 14:38
PROVIDERS: ATTEND Internal Medicine
DX: K29.70 Gastritis, unspecified, without bleeding (principal); G25.81 Restless legs syndrome; M54.9 Dorsalgia, unspecified; I12.9 Hypertensive chronic kidney disease with stage 1 through stage 4 chronic kidney disease, or unspecified chronic kidney disease; N18.9 Chronic kidney disease, unspecified; M19.90 Unspecified osteoarthritis, unspecified site; G31.84 Mild cognitive impairment of uncertain or unknown etiology; M75.100 Unspecified rotator cuff tear or rupture of unspecified shoulder, not specified as traumatic; Z87.440 Personal history of urinary (tract) infections; Z86.79 Personal history of other diseases of the circulatory system; R11.0 Nausea; K86.2 Cyst of pancreas; R26.9 Unspecified abnormalities of gait and mobility; Z79.891 Long term (current) use of opiate analgesic; Z79.899 Other long term (current) drug therapy
CPT/HCPCS: 36415; 80053; 83735; 84100; 84443; 85025; 85652; G0463

== ENCOUNTER → 2020-05-23 | Outpatient (CLI) | payer MEDICARE, OTHER | END | disposition home or self-care (01) | LOC: MSC 15:30 | PROVIDERS: ATTEND Anesthesiology | DX: M51.36 Other intervertebral disc degeneration, lumbar region (principal); M47.27 Other spondylosis with radiculopathy, lumbosacral region; M40.299 Other kyphosis, site unspecified; M62.830 Muscle spasm of back; M25.551 Pain in right hip; M25.9 Joint disorder, unspecified; Z99.89 Dependence on other enabling machines and devices; Z79.891 Long term (current) use of opiate analgesic ==

== ENCOUNTER 2020-06-11 10:30 | Outpatient (CLI) | payer MEDICARE, OTHER | END 2020-06-11 23:59 | disposition home or self-care (01) | LOC: MSC 10:30 | PROVIDERS: ATTEND Internal Medicine | DX: I12.9 Hypertensive chronic kidney disease with stage 1 through stage 4 chronic kidney disease, or unspecified chronic kidney disease (principal); N18.9 Chronic kidney disease, unspecified; M54.5 Low back pain; M19.90 Unspecified osteoarthritis, unspecified site; G25.81 Restless legs syndrome; G31.84 Mild cognitive impairment of uncertain or unknown etiology; K29.70 Gastritis, unspecified, without bleeding; M75.100 Unspecified rotator cuff tear or rupture of unspecified shoulder, not specified as traumatic; K86.2 Cyst of pancreas; Z86.79 Personal history of other diseases of the circulatory system; R26.9 Unspecified abnormalities of gait and mobility; Z99.89 Dependence on other enabling machines and devices; Z79.891 Long term (current) use of opiate analgesic; Z79.899 Other long term (current) drug therapy ==

== ENCOUNTER 2020-06-17 14:06 | Outpatient (CLI) | payer MEDICARE, OTHER | END 2020-06-17 23:59 | disposition home or self-care (01) | LOC: MSC 14:06 | PROVIDERS: ATTEND Anesthesiology | DX: M51.36 Other intervertebral disc degeneration, lumbar region (principal); M47.27 Other spondylosis with radiculopathy, lumbosacral region; M40.299 Other kyphosis, site unspecified; M62.830 Muscle spasm of back; M25.551 Pain in right hip; M25.9 Joint disorder, unspecified; Z96.642 Presence of left artificial hip joint; Z96.651 Presence of right artificial knee joint; Z96.7 Presence of other bone and tendon implants; Z79.891 Long term (current) use of opiate analgesic ==

== ENCOUNTER 2020-10-06 13:04 | Outpatient (CLI) | payer MEDICARE, OTHER ==
[~2020-10-06 13:04] MED LIST changes: -OMEP40CA13 PO; +OMEP40CA21 PO
== END 2020-10-06 23:59 | disposition home or self-care (01) ==
LOC: MSC 13:04
PROVIDERS: ATTEND Internal Medicine
DX: R05 Cough (principal); M54.9 Dorsalgia, unspecified; I12.9 Hypertensive chronic kidney disease with stage 1 through stage 4 chronic kidney disease, or unspecified chronic kidney disease; N18.9 Chronic kidney disease, unspecified; R26.9 Unspecified abnormalities of gait and mobility; G31.84 Mild cognitive impairment of uncertain or unknown etiology; M19.90 Unspecified osteoarthritis, unspecified site; G25.81 Restless legs syndrome; M75.100 Unspecified rotator cuff tear or rupture of unspecified shoulder, not specified as traumatic; Z79.899 Other long term (current) drug therapy

== ENCOUNTER 2020-10-06 13:05 | Outpatient (CLI) | payer MEDICARE, OTHER | END 2020-10-06 23:59 | disposition home or self-care (01) | LOC: MSC 13:05 | PROVIDERS: ATTEND Anesthesiology | DX: G89.29 Other chronic pain (principal); M54.5 Low back pain; M51.16 Intervertebral disc disorders with radiculopathy, lumbar region; M40.299 Other kyphosis, site unspecified; M62.830 Muscle spasm of back; M25.551 Pain in right hip; M47.897 Other spondylosis, lumbosacral region; Z79.899 Other long term (current) drug therapy ==

== ENCOUNTER → 2020-10-08 | Outpatient (CLI) | payer MEDICARE, OTHER | END | disposition home or self-care (01) | LOC: RAD 12:47 | PROVIDERS: ATTEND Internal Medicine | DX: R05 Cough (principal); I51.7 Cardiomegaly; I70.0 Atherosclerosis of aorta; M85.88 Other specified disorders of bone density and structure, other site; M41.85 Other forms of scoliosis, thoracolumbar region | CPT/HCPCS: 71045-TC ==

== ENCOUNTER 2020-10-29 11:45 | Outpatient (CLI) | payer MEDICARE, OTHER | END 2020-10-29 23:59 | disposition home or self-care (01) | LOC: LAB 11:45 | PROVIDERS: ATTEND Anesthesiology | DX: Z01.812 Encounter for preprocedural laboratory examination (principal); Z20.822 Contact with and (suspected) exposure to COVID-19 | CPT/HCPCS: C9803; U0003 ==

== ENCOUNTER 2020-11-04 07:14 | Day surgery (SDC) | payer MEDICARE, OTHER ==
[2020-11-04] MEDS ORDERED: FENTANYL PF 100MCG/2ML AMPUL ONE (07:50)
[2020-11-04] MEDS ORDERED: BUPIVACAINE 0.25% 75 MG/30 ML VIAL ONE (09:20)
[2020-11-04] MEDS ORDERED: LIDOCAINE 1% INJ 50 ML MDV IJ ONE (09:20)
[2020-11-04] MEDS ORDERED: methylPREDNISolone ACETATE 80 MG/ML VIAL ONE (09:20)
[2020-11-04] MEDS ORDERED: IOHEXOL 240MG/ML 50 ML IV ONE (09:20)
== END 2020-11-04 11:30 | disposition home or self-care (01) ==
LOC: DS 07:14
PROVIDERS: ATTEND Anesthesiology
DX: M47.816 Spondylosis without myelopathy or radiculopathy, lumbar region (principal); I10 Essential (primary) hypertension; M19.90 Unspecified osteoarthritis, unspecified site; Z98.890 Other specified postprocedural states; Z79.899 Other long term (current) drug therapy
CPT/HCPCS: 64493; 64494; 64495; 72100; A6209; J1040; J2704; J3010; J3490 ×2; Q9966

== ENCOUNTER 2021-07-21 14:30 | Outpatient (CLI) | payer MEDICARE, OTHER | END 2021-07-21 23:59 | disposition home or self-care (01) | LOC: MSC 14:30 | PROVIDERS: ATTEND Internal Medicine | DX: R22.0 Localized swelling, mass and lump, head (principal); G89.29 Other chronic pain; M54.9 Dorsalgia, unspecified; R05.9 Cough, unspecified; T78.40XD Allergy, unspecified, subsequent encounter; I12.9 Hypertensive chronic kidney disease with stage 1 through stage 4 chronic kidney disease, or unspecified chronic kidney disease; N18.9 Chronic kidney disease, unspecified; G25.81 Restless legs syndrome; M19.90 Unspecified osteoarthritis, unspecified site; G31.84 Mild cognitive impairment of uncertain or unknown etiology; K29.70 Gastritis, unspecified, without bleeding; M75.100 Unspecified rotator cuff tear or rupture of unspecified shoulder, not specified as traumatic; K86.2 Cyst of pancreas; R26.9 Unspecified abnormalities of gait and mobility ==

== ENCOUNTER 2021-07-23 09:46 | Outpatient (CLI) | payer MEDICARE, OTHER ==
[2021-07-23 11:03] LABS: BASOPHILS % (AUTO) 0.3 % (0.0-2.0); EOSINOPHILS % (AUTO) 1.5 % (0.0-6.0); HEMATOCRIT 29 % (33-45); HEMOGLOBIN 9.6 g/dL (11.5-14.8); LYMPHOCYTES # (AUTO) 0.7 K/uL (0.8-4.8); MEAN CORPUSCULAR HGB CONC 33 g/dl (31.0-36.0); MEAN CORPUSCULAR VOLUME 91 fL (82-100); MONOCYTES # (AUTO) 0.7 K/uL (0.1-1.30); NEUTROPHILS # (AUTO) 6.7 K/uL (1.8-8.9); NEUTROPHILS % (AUTO) 82.2 % (43.0-81.0); PLATELET COUNT (AUTO) 273 K/uL (150-450); RED BLOOD CELL COUNT(AUTO) 3.18 MIL/uL (4.0-5.2); WHITE BLOOD COUNT (AUTO) 8.2 K/uL (4.3-11.0)
[2021-07-23 11:18] LABS: IRON, SERUM 26 ug/dl (50-175); TOTAL IRON BINDING CAPACITY 194 ug/dl (250-450)
[2021-07-23 11:30] LABS: CHOLESTEROL 155 mg/dL (<200); HDL CHOLESTEROL 65 mg/dL (40-60); LDL 81 mg/dL (0-99); TRIGLYCERIDES 43 mg/dL (30-150)
[2021-07-23 11:41] LABS: C-REACTIVE PROTEIN 7.2 mg/dL (0.0-0.9)
[2021-07-23 11:45] LABS: ALANINE AMINOTRANSFERASE 20 U/L (12-78); ALBUMIN 3.1 g/dL (3.4-5.0); ALKALINE PHOSPHATASE 20 U/L (46-116); ASPARTATE AMINOTRANSFERASE 10 U/L (15-37); BILIRUBIN,TOTAL 0.4 mg/dL (0.2-1.0); CALCIUM, SERUM 9.3 mg/dL (8.5-10.1); CARBON DIOXIDE 27 mmol/L (21-32); CHLORIDE 106 mmol/L (98-107); CREATININE 1.5 mg/dL (0.6-1.3); GLUCOSE 109 mg/dL (74-106); MAGNESIUM 2.5 mg/dL (1.8-2.4); PHOSPHORUS 6.4 mg/dL (2.5-4.9); POTASSIUM 4.9 mmol/L (3.5-5.1); SODIUM SERUM 141 mmol/L (136-145); TOTAL PROTEIN, SERUM 7.2 g/dL (6.4-8.2); UREA NITROGEN, BLOOD 50 mg/dL (7-18)
[2021-07-26 18:06] LABS: CCP IgG/IgA AB 1 units (0-19)
== END 2021-07-23 23:59 | disposition home or self-care (01) ==
LOC: MSC 09:46
PROVIDERS: ATTEND Internal Medicine
DX: G89.29 Other chronic pain (principal); M54.50 Low back pain, unspecified; R05.9 Cough, unspecified; T78.40XD Allergy, unspecified, subsequent encounter; I12.9 Hypertensive chronic kidney disease with stage 1 through stage 4 chronic kidney disease, or unspecified chronic kidney disease; N18.9 Chronic kidney disease, unspecified; G25.81 Restless legs syndrome; M19.90 Unspecified osteoarthritis, unspecified site; G31.84 Mild cognitive impairment of uncertain or unknown etiology; K29.70 Gastritis, unspecified, without bleeding; M75.100 Unspecified rotator cuff tear or rupture of unspecified shoulder, not specified as traumatic; K86.2 Cyst of pancreas; R26.9 Unspecified abnormalities of gait and mobility; Z79.899 Other long term (current) drug therapy
CPT/HCPCS: 36415; 80053; 80061; 82306; 82607; 82746; 83036; 83540; 83735; 84100; 84134; 84443; 85025; 85652; 86038; 86140; 86200; 86431; G0463

== ENCOUNTER → 2021-08-04 | Outpatient (CLI) | payer MEDICARE, OTHER | END | disposition home or self-care (01) | LOC: MSC 10:50 | PROVIDERS: ATTEND Anesthesiology | DX: M47.27 Other spondylosis with radiculopathy, lumbosacral region (principal); M51.36 Other intervertebral disc degeneration, lumbar region; M40.299 Other kyphosis, site unspecified; M62.830 Muscle spasm of back; M25.551 Pain in right hip; M25.9 Joint disorder, unspecified; Z96.642 Presence of left artificial hip joint; Z96.652 Presence of left artificial knee joint; Z79.891 Long term (current) use of opiate analgesic; Z79.1 Long term (current) use of non-steroidal anti-inflammatories (NSAID) ==

== ENCOUNTER → 2021-08-12 | Outpatient (CLI) | payer MEDICARE, OTHER | END | disposition home or self-care (01) | LOC: MSC 13:30 | PROVIDERS: ATTEND Internal Medicine | DX: I12.9 Hypertensive chronic kidney disease with stage 1 through stage 4 chronic kidney disease, or unspecified chronic kidney disease (principal); N18.30 Chronic kidney disease, stage 3 unspecified; G89.29 Other chronic pain; M54.9 Dorsalgia, unspecified; R05.3 Chronic cough; T78.40XD Allergy, unspecified, subsequent encounter; G25.81 Restless legs syndrome; M19.90 Unspecified osteoarthritis, unspecified site; G31.84 Mild cognitive impairment of uncertain or unknown etiology; K29.70 Gastritis, unspecified, without bleeding; M75.100 Unspecified rotator cuff tear or rupture of unspecified shoulder, not specified as traumatic; K86.2 Cyst of pancreas; R26.9 Unspecified abnormalities of gait and mobility; Z99.89 Dependence on other enabling machines and devices; Z79.899 Other long term (current) drug therapy ==

== ENCOUNTER 2021-09-08 09:28 | Outpatient (CLI) | payer MEDICARE, OTHER | END 2021-09-08 23:59 | disposition home or self-care (01) | LOC: MSC 09:28 | PROVIDERS: ATTEND Anesthesiology | DX: M47.27 Other spondylosis with radiculopathy, lumbosacral region (principal); M51.36 Other intervertebral disc degeneration, lumbar region; M40.299 Other kyphosis, site unspecified; M62.830 Muscle spasm of back; M25.551 Pain in right hip; M25.9 Joint disorder, unspecified; M25.562 Pain in left knee; M25.561 Pain in right knee; Z79.891 Long term (current) use of opiate analgesic; Z79.1 Long term (current) use of non-steroidal anti-inflammatories (NSAID); Z96.642 Presence of left artificial hip joint; Z96.652 Presence of left artificial knee joint; Z98.890 Other specified postprocedural states ==

== ENCOUNTER 2021-09-22 10:56 | Outpatient (CLI) | payer MEDICARE, OTHER | END 2021-09-22 23:59 | disposition home or self-care (01) | LOC: MSC 10:56 | PROVIDERS: ATTEND Internal Medicine | DX: M25.552 Pain in left hip (principal); J06.9 Acute upper respiratory infection, unspecified; I12.9 Hypertensive chronic kidney disease with stage 1 through stage 4 chronic kidney disease, or unspecified chronic kidney disease; N18.30 Chronic kidney disease, stage 3 unspecified; M54.9 Dorsalgia, unspecified; R05.9 Cough, unspecified; T78.40XD Allergy, unspecified, subsequent encounter; G25.81 Restless legs syndrome; M19.90 Unspecified osteoarthritis, unspecified site; G31.84 Mild cognitive impairment of uncertain or unknown etiology; K29.70 Gastritis, unspecified, without bleeding; M75.100 Unspecified rotator cuff tear or rupture of unspecified shoulder, not specified as traumatic; K86.2 Cyst of pancreas; R26.9 Unspecified abnormalities of gait and mobility; Z99.89 Dependence on other enabling machines and devices; Z79.899 Other long term (current) drug therapy | CPT/HCPCS: 73521; G0463 ==

== ENCOUNTER 2021-10-06 09:27 | Outpatient (CLI) | payer MEDICARE, OTHER | END 2021-10-06 23:59 | disposition home or self-care (01) | LOC: MSC 09:27 | PROVIDERS: ATTEND Anesthesiology | DX: M79.601 Pain in right arm (principal); M51.36 Other intervertebral disc degeneration, lumbar region; M47.27 Other spondylosis with radiculopathy, lumbosacral region; M40.299 Other kyphosis, site unspecified; M62.830 Muscle spasm of back; M25.551 Pain in right hip; M25.9 Joint disorder, unspecified; Z79.891 Long term (current) use of opiate analgesic; Z79.899 Other long term (current) drug therapy | CPT/HCPCS: 72170; 73552; G0463 ==

== ENCOUNTER → 2021-12-22 | Outpatient (CLI) | payer MEDICARE, OTHER | END | disposition home or self-care (01) | LOC: MSC 11:45 | PROVIDERS: ATTEND Internal Medicine | DX: R05.8 Other specified cough (principal); M25.552 Pain in left hip; I12.9 Hypertensive chronic kidney disease with stage 1 through stage 4 chronic kidney disease, or unspecified chronic kidney disease; N18.30 Chronic kidney disease, stage 3 unspecified; M54.9 Dorsalgia, unspecified; G25.81 Restless legs syndrome; M19.90 Unspecified osteoarthritis, unspecified site; G31.84 Mild cognitive impairment of uncertain or unknown etiology; K29.70 Gastritis, unspecified, without bleeding; M75.100 Unspecified rotator cuff tear or rupture of unspecified shoulder, not specified as traumatic; K86.2 Cyst of pancreas; R26.9 Unspecified abnormalities of gait and mobility; Z99.89 Dependence on other enabling machines and devices; Z79.899 Other long term (current) drug therapy ==

== ENCOUNTER → 2022-01-21 | Outpatient (CLI) | payer MEDICARE, OTHER | END | disposition home or self-care (01) | LOC: MSC 11:00 | PROVIDERS: ATTEND Internal Medicine | DX: R05.9 Cough, unspecified (principal); M25.552 Pain in left hip; I12.9 Hypertensive chronic kidney disease with stage 1 through stage 4 chronic kidney disease, or unspecified chronic kidney disease; N18.30 Chronic kidney disease, stage 3 unspecified; M54.9 Dorsalgia, unspecified; G25.81 Restless legs syndrome; M19.90 Unspecified osteoarthritis, unspecified site; G31.84 Mild cognitive impairment of uncertain or unknown etiology; K29.70 Gastritis, unspecified, without bleeding; M75.100 Unspecified rotator cuff tear or rupture of unspecified shoulder, not specified as traumatic; K86.2 Cyst of pancreas; R26.9 Unspecified abnormalities of gait and mobility; Z99.89 Dependence on other enabling machines and devices; Z79.899 Other long term (current) drug therapy ==

== ENCOUNTER 2022-04-14 16:30 | Outpatient (CLI) | payer MEDICARE, OTHER | END 2022-04-14 23:59 | disposition home or self-care (01) | LOC: MSC 16:30 | PROVIDERS: ATTEND Internal Medicine | DX: J06.9 Acute upper respiratory infection, unspecified (principal); M25.552 Pain in left hip; I12.9 Hypertensive chronic kidney disease with stage 1 through stage 4 chronic kidney disease, or unspecified chronic kidney disease; N18.30 Chronic kidney disease, stage 3 unspecified; M54.9 Dorsalgia, unspecified; G25.81 Restless legs syndrome; M19.90 Unspecified osteoarthritis, unspecified site; G31.84 Mild cognitive impairment of uncertain or unknown etiology; K29.70 Gastritis, unspecified, without bleeding; M75.100 Unspecified rotator cuff tear or rupture of unspecified shoulder, not specified as traumatic; Z99.3 Dependence on wheelchair; K86.2 Cyst of pancreas; R26.9 Unspecified abnormalities of gait and mobility ==

== ENCOUNTER → 2022-04-19 | Outpatient (CLI) | payer MEDICARE, OTHER | END | disposition home or self-care (01) | LOC: MSC 13:00 | PROVIDERS: ATTEND Internal Medicine | DX: R05.9 Cough, unspecified (principal); T78.40XD Allergy, unspecified, subsequent encounter; M25.552 Pain in left hip; I12.9 Hypertensive chronic kidney disease with stage 1 through stage 4 chronic kidney disease, or unspecified chronic kidney disease; N18.30 Chronic kidney disease, stage 3 unspecified; M54.9 Dorsalgia, unspecified; G25.81 Restless legs syndrome; M19.90 Unspecified osteoarthritis, unspecified site; G31.84 Mild cognitive impairment of uncertain or unknown etiology; K29.70 Gastritis, unspecified, without bleeding; M75.100 Unspecified rotator cuff tear or rupture of unspecified shoulder, not specified as traumatic; K86.2 Cyst of pancreas; R26.9 Unspecified abnormalities of gait and mobility ==

== ENCOUNTER 2022-04-22 15:30 | Outpatient (CLI) | payer MEDICARE, OTHER | END 2022-04-22 23:59 | disposition home or self-care (01) | LOC: MSC 15:30 | PROVIDERS: ATTEND Internal Medicine | DX: R05.9 Cough, unspecified (principal); M25.552 Pain in left hip; I12.9 Hypertensive chronic kidney disease with stage 1 through stage 4 chronic kidney disease, or unspecified chronic kidney disease; N18.30 Chronic kidney disease, stage 3 unspecified; M54.9 Dorsalgia, unspecified; G25.81 Restless legs syndrome; M19.90 Unspecified osteoarthritis, unspecified site; G31.84 Mild cognitive impairment of uncertain or unknown etiology; T78.40XD Allergy, unspecified, subsequent encounter; K29.70 Gastritis, unspecified, without bleeding; M75.100 Unspecified rotator cuff tear or rupture of unspecified shoulder, not specified as traumatic; K86.2 Cyst of pancreas; R26.9 Unspecified abnormalities of gait and mobility ==

== ENCOUNTER 2022-05-25 10:06 | Outpatient (CLI) | payer MEDICARE, OTHER ==
[2022-05-25 11:45] LABS: ALANINE AMINOTRANSFERASE 13 U/L (12-78); ALBUMIN 3.3 g/dL (3.4-5.0); ALKALINE PHOSPHATASE 14 U/L (46-116); ASPARTATE AMINOTRANSFERASE 16 U/L (15-37); BILIRUBIN,TOTAL 0.4 mg/dL (0.2-1.0); CARBON DIOXIDE 19 mmol/L (21-32); CHLORIDE 108 mmol/L (98-107); CREATININE 1.5 mg/dL (0.6-1.3); GLUCOSE 129 mg/dL (74-106); SODIUM SERUM 140 mmol/L (136-145); TOTAL PROTEIN, SERUM 7.3 g/dL (6.4-8.2); UREA NITROGEN, BLOOD 30 mg/dL (7-18)
== END 2022-05-25 23:59 | disposition home or self-care (01) ==
LOC: MSC 10:06
PROVIDERS: ATTEND Internal Medicine
DX: R10.31 Right lower quadrant pain (principal); K40.90 Unilateral inguinal hernia, without obstruction or gangrene, not specified as recurrent; M89.9 Disorder of bone, unspecified; K86.9 Disease of pancreas, unspecified; N64.9 Disorder of breast, unspecified; E07.9 Disorder of thyroid, unspecified; S42.301A Unspecified fracture of shaft of humerus, right arm, initial encounter for closed fracture; R05.9 Cough, unspecified; M25.552 Pain in left hip; I12.9 Hypertensive chronic kidney disease with stage 1 through stage 4 chronic kidney disease, or unspecified chronic kidney disease; N18.30 Chronic kidney disease, stage 3 unspecified; M54.9 Dorsalgia, unspecified; G25.81 Restless legs syndrome; M19.90 Unspecified osteoarthritis, unspecified site; G31.84 Mild cognitive impairment of uncertain or unknown etiology; T78.40XD Allergy, unspecified, subsequent encounter; K29.70 Gastritis, unspecified, without bleeding; M75.100 Unspecified rotator cuff tear or rupture of unspecified shoulder, not specified as traumatic; K86.2 Cyst of pancreas; R26.9 Unspecified abnormalities of gait and mobility
CPT/HCPCS: 36415; 80053; G0463

== ENCOUNTER 2022-07-26 16:00 | Outpatient (CLI) | payer MEDICARE, OTHER | END 2022-07-26 23:59 | disposition home or self-care (01) | LOC: MSC 16:00 | PROVIDERS: ATTEND Internal Medicine | DX: I16.1 Hypertensive emergency (principal); G89.29 Other chronic pain; M54.9 Dorsalgia, unspecified; R10.31 Right lower quadrant pain; K40.90 Unilateral inguinal hernia, without obstruction or gangrene, not specified as recurrent; M89.9 Disorder of bone, unspecified; K86.9 Disease of pancreas, unspecified; N64.9 Disorder of breast, unspecified; E07.9 Disorder of thyroid, unspecified; M21.921 Unspecified acquired deformity of right upper arm; I12.9 Hypertensive chronic kidney disease with stage 1 through stage 4 chronic kidney disease, or unspecified chronic kidney disease; N18.30 Chronic kidney disease, stage 3 unspecified; M19.90 Unspecified osteoarthritis, unspecified site; G31.84 Mild cognitive impairment of uncertain or unknown etiology; K86.2 Cyst of pancreas; R26.9 Unspecified abnormalities of gait and mobility ==

== ENCOUNTER → 2022-07-27 | Outpatient (CLI) | payer MEDICARE, OTHER | END | disposition home or self-care (01) | LOC: MSC 11:30 | PROVIDERS: ATTEND Internal Medicine | DX: I16.1 Hypertensive emergency (principal); G89.29 Other chronic pain; M54.9 Dorsalgia, unspecified; R10.31 Right lower quadrant pain; K40.90 Unilateral inguinal hernia, without obstruction or gangrene, not specified as recurrent; M89.9 Disorder of bone, unspecified; N64.9 Disorder of breast, unspecified; E07.9 Disorder of thyroid, unspecified; K86.2 Cyst of pancreas; E87.5 Hyperkalemia; M21.921 Unspecified acquired deformity of right upper arm; I12.9 Hypertensive chronic kidney disease with stage 1 through stage 4 chronic kidney disease, or unspecified chronic kidney disease; N18.30 Chronic kidney disease, stage 3 unspecified; M19.90 Unspecified osteoarthritis, unspecified site; G31.84 Mild cognitive impairment of uncertain or unknown etiology; R26.9 Unspecified abnormalities of gait and mobility ==

== ENCOUNTER 2022-08-03 09:05 | Outpatient (CLI) | payer MEDICARE, OTHER ==
[2022-08-03 10:52] LABS: BASOPHILS % (AUTO) 0.5 % (0.0-2.0); CALCIUM, SERUM 8.9 mg/dL (8.5-10.1); CARBON DIOXIDE 21 mmol/L (21-32); CHLORIDE 110 mmol/L (98-107); CREATININE 1.5 mg/dL (0.6-1.3); EOSINOPHILS % (AUTO) 2.5 % (0.0-6.0); GLUCOSE 96 mg/dL (74-106); HEMATOCRIT 31 % (33-45); HEMOGLOBIN 10.7 g/dL (11.5-14.8); LYMPHOCYTES # (AUTO) 1.3 K/uL (0.8-4.8); LYMPHOCYTES % (AUTO) 18.7 % (20.0-44.0); MEAN CORPUSCULAR HGB CONC 34 g/dl (31.0-36.0); MEAN CORPUSCULAR VOLUME 91 fL (82-100); MONOCYTES # (AUTO) 0.6 K/uL (0.1-1.30); MONOCYTES % (AUTO) 8.4 % (2.0-12.0); NEUTROPHILS # (AUTO) 4.7 K/uL (1.8-8.9); NEUTROPHILS % (AUTO) 69.9 % (43.0-81.0); PLATELET COUNT (AUTO) 235 K/uL (150-450); POTASSIUM 4.7 mmol/L (3.5-5.1); RED BLOOD CELL COUNT(AUTO) 3.44 MIL/uL (4.0-5.2); SODIUM SERUM 140 mmol/L (136-145); UREA NITROGEN, BLOOD 35 mg/dL (7-18); WHITE BLOOD COUNT (AUTO) 6.7 K/uL (4.3-11.0)
[2022-08-03 10:59] LABS: ALANINE AMINOTRANSFERASE 11 U/L (12-78); ALKALINE PHOSPHATASE 30 U/L (46-116); ASPARTATE AMINOTRANSFERASE 12 U/L (15-37); BILIRUBIN,TOTAL 0.3 mg/dL (0.2-1.0); MAGNESIUM 2.1 mg/dL (1.8-2.4); PHOSPHORUS 5.7 mg/dL (2.5-4.9); TOTAL PROTEIN, SERUM 6.5 g/dL (6.4-8.2)
[2022-08-03 11:12] LABS: CHOLESTEROL 138 mg/dL (<200); HDL CHOLESTEROL 47 mg/dL (40-60); LDL 79 mg/dL (0-99); TRIGLYCERIDES 103 mg/dL (30-150)
[2022-08-03 11:45] LABS: C-REACTIVE PROTEIN 0.2 mg/dL (0.0-0.9); THYROID STIMULATING HORMONE 1.351 uIU/mL (0.358-3.74)
== END 2022-08-03 23:59 | disposition home or self-care (01) ==
LOC: MSC 09:05
PROVIDERS: ATTEND Internal Medicine
DX: G89.29 Other chronic pain (principal); M54.59 Other low back pain; R10.31 Right lower quadrant pain; K40.90 Unilateral inguinal hernia, without obstruction or gangrene, not specified as recurrent; M89.9 Disorder of bone, unspecified; N64.9 Disorder of breast, unspecified; E07.9 Disorder of thyroid, unspecified; K86.2 Cyst of pancreas; E87.5 Hyperkalemia; M21.921 Unspecified acquired deformity of right upper arm; I12.9 Hypertensive chronic kidney disease with stage 1 through stage 4 chronic kidney disease, or unspecified chronic kidney disease; N18.30 Chronic kidney disease, stage 3 unspecified; M19.90 Unspecified osteoarthritis, unspecified site; G31.84 Mild cognitive impairment of uncertain or unknown etiology; G25.81 Restless legs syndrome; R26.9 Unspecified abnormalities of gait and mobility; K29.70 Gastritis, unspecified, without bleeding; Z79.899 Other long term (current) drug therapy
CPT/HCPCS: 80061; 85025; 83735; 83036; 84100; 85652; 36415; 84439; 84443; 80053; 86140; G0463

== ENCOUNTER 2022-08-09 15:32 | Outpatient (CLI) | payer MEDICARE, OTHER | END 2022-08-09 23:59 | disposition home or self-care (01) | LOC: MRI 15:32 | PROVIDERS: ATTEND Internal Medicine | DX: M51.36 Other intervertebral disc degeneration, lumbar region (principal); M48.8X6 Other specified spondylopathies, lumbar region; M54.9 Dorsalgia, unspecified; M40.46 Postural lordosis, lumbar region | CPT/HCPCS: 72148-TC ==

== ENCOUNTER 2022-08-26 10:15 | Outpatient (CLI) | payer MEDICARE, OTHER | END 2022-08-26 23:59 | disposition home or self-care (01) | LOC: MSC 10:15 | PROVIDERS: ATTEND Internal Medicine | DX: J20.9 Acute bronchitis, unspecified (principal); G89.29 Other chronic pain; M54.9 Dorsalgia, unspecified; R10.31 Right lower quadrant pain; K40.90 Unilateral inguinal hernia, without obstruction or gangrene, not specified as recurrent; M89.9 Disorder of bone, unspecified; N64.9 Disorder of breast, unspecified; E07.9 Disorder of thyroid, unspecified; K86.2 Cyst of pancreas; E87.5 Hyperkalemia; M21.921 Unspecified acquired deformity of right upper arm; I12.9 Hypertensive chronic kidney disease with stage 1 through stage 4 chronic kidney disease, or unspecified chronic kidney disease; N18.30 Chronic kidney disease, stage 3 unspecified; M19.90 Unspecified osteoarthritis, unspecified site; G31.84 Mild cognitive impairment of uncertain or unknown etiology; G25.81 Restless legs syndrome; R26.9 Unspecified abnormalities of gait and mobility; K29.70 Gastritis, unspecified, without bleeding; Z79.899 Other long term (current) drug therapy ==

== ENCOUNTER 2023-01-27 00:04 | Inpatient (IN) | payer MEDICARE, OTHER ==
[~2023-01-27] VITALS: Ht 121.9 cm; Wt 44.9 kg
[2023-01-27] MEDS ORDERED: LEVETIRACETAM (500MG) 500 MG in IV NS 0.9% 100 ML IV SCH ×2 (02:30→12:00)
[2023-01-27] MEDS ORDERED: CARV12.52 PO (03:56)
[2023-01-27] MEDS ORDERED: BENZ-13 PO (03:56)
[2023-01-27] MEDS ORDERED: ACET325C7 PO (03:56)
[2023-01-27] MEDS ORDERED: ONDA4TAB5 PO (03:56)
[2023-01-27] MEDS ORDERED: DOCU100C36 PO (03:56)
[2023-01-27] MEDS ORDERED: FERR325T23 PO (03:56)
[2023-01-27] MEDS ORDERED: HYDR-4076 PO (03:56)
[2023-01-27] MEDS ORDERED: FAMO40TA7 PO (03:56)
[2023-01-27] MEDS ORDERED: DULO30CA2 PO (03:56)
[2023-01-27] MEDS ORDERED: CLOP75TA15 PO (03:56)
[2023-01-27] MEDS ORDERED: NIFE-34 PO (03:56)
[2023-01-27] MEDS ORDERED: TRAM50TA2 PO (03:56)
[2023-01-27] MEDS ORDERED: MONT10TA22 PO (03:56)
[2023-01-27] MEDS ORDERED: ATOR40TA PO (03:56)
[2023-01-27 06:19] LABS: BASOPHILS % (AUTO) 0.3 % (0.0-2.0); EOSINOPHILS # (AUTO) 0.1 K/uL (0.0-0.7); HEMATOCRIT 28 % (33-45); HEMOGLOBIN 9.4 g/dL (11.5-14.8); LYMPHOCYTES # (AUTO) 1.3 K/uL (0.8-4.8); LYMPHOCYTES % (AUTO) 21.9 % (20.0-44.0); MEAN CORPUSCULAR HEMOGLOBIN 31 PG (26.0-33.0); MEAN CORPUSCULAR HGB CONC 33 g/dl (31.0-36.0); MEAN CORPUSCULAR VOLUME 95 fL (82-100); MONOCYTES # (AUTO) 0.7 K/uL (0.1-1.30); MONOCYTES % (AUTO) 12.5 % (2.0-12.0); NEUTROPHILS # (AUTO) 3.9 K/uL (1.8-8.9); NEUTROPHILS % (AUTO) 64.3 % (43.0-81.0); PLATELET COUNT (AUTO) 207 K/uL (150-450); RED CELL DISTRIBUTION WIDTH 13.2 % (11.5-15.0)
[2023-01-27 06:25] LABS: CARBON DIOXIDE 20 mmol/L (21-32); CHLORIDE 111 mmol/L (98-107); CREATININE 1.3 mg/dL (0.6-1.3); GLUCOSE 99 mg/dL (74-106); POTASSIUM 3.7 mmol/L (3.5-5.1); SODIUM SERUM 142 mmol/L (136-145); UREA NITROGEN, BLOOD 18 mg/dL (7-18)
[2023-01-27 07:28] LABS: CHOLESTEROL 85 mg/dL (<200); HDL CHOLESTEROL 49 mg/dL (40-60); LDL 36 mg/dL (0-99); TRIGLYCERIDES 49 mg/dL (30-150)
[2023-01-27] MEDS: PANTOPRAZOLE 40 MG TABLET.DR PO SCH ×2 (07:30→17:29)
[2023-01-27] MEDS: BLOOD SUGAR DIAGNOSTIC 1 EACH STRIP IN SCH ×4 (07:52→22:05)
[2023-01-27 08:00] VITALS: BP 171/52; TEMP 98.4; O2SAT 97
[2023-01-27] MEDS ORDERED: ETODOLAC 400 MG PO SCH (09:00)
[2023-01-27] MEDS ORDERED: ACET-868 PO (09:26)
[2023-01-27] MEDS ORDERED: LEVO500T90 PO (09:26)
[2023-01-27] MEDS ORDERED: PANT40TA49 PO (09:26)
[2023-01-27] MEDS ORDERED: POLY17PO29 PO (09:26)
[2023-01-27] MEDS ORDERED: METR-147 PO (09:26)
[2023-01-27] MEDS: FOLIC ACID 1 MG TABLET PO SCH (09:32)
[2023-01-27] MEDS: ASPIRIN EC 81 MG TABLET.DR PO SCH (09:32)
[2023-01-27] MEDS: LEVETIRACETAM (500MG) 500 MG in IV NS 0.9% 100 ML IV SCH ×2 (09:33→21:03)
[2023-01-27] MEDS ORDERED: hydrALAZINE HCL 25 MG TABLET PO PRN (12:00)
[2023-01-27] MEDS: hydrALAZINE HCL 25 MG TABLET PO PRN ×2 (12:18→18:25)
[2023-01-27 12:45] VITALS: BP 145/80
[2023-01-27] MEDS: CLOPIDOGREL BISULFATE 75 MG TABLET PO SCH (13:09)
[2023-01-27 16:00] VITALS: BP 167/57; TEMP 98; O2SAT 97
[2023-01-27 20:52] VITALS: BP 156/45; TEMP 98.2; O2SAT 97
[2023-01-27] MEDS: ATORVASTATIN 10 MG TABLET PO SCH (21:38)
[2023-01-27] MEDS: BACLOFEN (10 MG) 10 MG TABLET PO SCH (21:38)
[2023-01-28 00:45] VITALS: BP 112/45; TEMP 98.2; O2SAT 98
[2023-01-28] MEDS: hydrALAZINE HCL 25 MG TABLET PO PRN (04:20)
[2023-01-28 06:02] LABS: BASOPHILS % (AUTO) 0.5 % (0.0-2.0); EOSINOPHILS # (AUTO) 0.2 K/uL (0.0-0.7); EOSINOPHILS % (AUTO) 3.1 % (0.0-6.0); HEMATOCRIT 28 % (33-45); HEMOGLOBIN 9.5 g/dL (11.5-14.8); INR 1.13 (0.91-1.10); LYMPHOCYTES # (AUTO) 1.2 K/uL (0.8-4.8); LYMPHOCYTES % (AUTO) 22.4 % (20.0-44.0); MEAN CORPUSCULAR HEMOGLOBIN 32 PG (26.0-33.0); MEAN CORPUSCULAR HGB CONC 34 g/dl (31.0-36.0); MEAN CORPUSCULAR VOLUME 94 fL (82-100); MONOCYTES # (AUTO) 0.6 K/uL (0.1-1.30); MONOCYTES % (AUTO) 11.7 % (2.0-12.0); NEUTROPHILS # (AUTO) 3.3 K/uL (1.8-8.9); NEUTROPHILS % (AUTO) 62.3 % (43.0-81.0); PARTIAL THROMBOPLASTIN TIME 32.7 SEC (24.3-34.3); PLATELET COUNT (AUTO) 209 K/uL (150-450); PROTHROMBIN TIME 11.9 SECS (9.2-11.1); RED BLOOD CELL COUNT(AUTO) 2.97 MIL/uL (4.0-5.2); RED CELL DISTRIBUTION WIDTH 13.3 % (11.5-15.0); WHITE BLOOD COUNT (AUTO) 5.4 K/uL (4.3-11.0)
[2023-01-28 06:12] LABS: CHOLESTEROL 94 mg/dL (<200); HDL CHOLESTEROL 41 mg/dL (40-60); LDL 40 mg/dL (0-99); TRIGLYCERIDES 113 mg/dL (30-150)
[2023-01-28 06:13] LABS: CALCIUM, SERUM 8.3 mg/dL (8.5-10.1); CARBON DIOXIDE 20 mmol/L (21-32); CHLORIDE 112 mmol/L (98-107); CREATININE 1.4 mg/dL (0.6-1.3); GLUCOSE 102 mg/dL (74-106); POTASSIUM 4.2 mmol/L (3.5-5.1); SODIUM SERUM 143 mmol/L (136-145); UREA NITROGEN, BLOOD 27 mg/dL (7-18)
[2023-01-28] MEDS: BLOOD SUGAR DIAGNOSTIC 1 EACH STRIP IN SCH ×4 (06:46→21:36)
[2023-01-28 08:02] VITALS: BP 153/46; TEMP 97.9; O2SAT 98
[2023-01-28] MEDS: ASPIRIN EC 81 MG TABLET.DR PO SCH (08:38)
[2023-01-28] MEDS: CLOPIDOGREL BISULFATE 75 MG TABLET PO SCH (08:38)
[2023-01-28] MEDS: PANTOPRAZOLE 40 MG TABLET.DR PO SCH ×2 (08:38→16:11)
[2023-01-28] MEDS: FOLIC ACID 1 MG TABLET PO SCH (08:44)
[2023-01-28] MEDS: IV NS 0.9% 1,000 ML IV PRN (09:21)
[2023-01-28] MEDS: LEVETIRACETAM (500MG) 500 MG in IV NS 0.9% 100 ML IV SCH ×2 (09:21→21:36)
[2023-01-28 13:00] VITALS: BP 155/47; TEMP 97.6; O2SAT 98
[2023-01-28 20:00] VITALS: TEMP 97.8; O2SAT 96
[2023-01-28] MEDS: ATORVASTATIN 10 MG TABLET PO SCH (21:39)
[2023-01-28] MEDS: BACLOFEN (10 MG) 10 MG TABLET PO SCH (21:39)
[2023-01-29] VITALS (8 sets, daily range): BP systolic 114–200; BP diastolic 44–98; TEMP 97.7–98.8; O2SAT 94–96
[2023-01-29] MEDS: IV NS 0.9% 1,000 ML IV PRN (00:23)
[2023-01-29] MEDS: hydrALAZINE HCL 25 MG TABLET PO PRN ×4 (00:46→20:23)
[2023-01-29] MEDS: BLOOD SUGAR DIAGNOSTIC 1 EACH STRIP IN SCH ×4 (05:57→21:12)
[2023-01-29 06:28] LABS: BASOPHILS % (AUTO) 0.3 % (0.0-2.0); EOSINOPHILS # (AUTO) 0.2 K/uL (0.0-0.7); EOSINOPHILS % (AUTO) 2.9 % (0.0-6.0); HEMATOCRIT 28 % (33-45); HEMOGLOBIN 9.4 g/dL (11.5-14.8); LYMPHOCYTES # (AUTO) 1.2 K/uL (0.8-4.8); LYMPHOCYTES % (AUTO) 20.1 % (20.0-44.0); MEAN CORPUSCULAR HEMOGLOBIN 32 PG (26.0-33.0); MEAN CORPUSCULAR HGB CONC 34 g/dl (31.0-36.0); MEAN CORPUSCULAR VOLUME 94 fL (82-100); MONOCYTES # (AUTO) 0.6 K/uL (0.1-1.30); MONOCYTES % (AUTO) 10.6 % (2.0-12.0); NEUTROPHILS # (AUTO) 4.1 K/uL (1.8-8.9); NEUTROPHILS % (AUTO) 66.1 % (43.0-81.0); PLATELET COUNT (AUTO) 222 K/uL (150-450); RED BLOOD CELL COUNT(AUTO) 2.95 MIL/uL (4.0-5.2); RED CELL DISTRIBUTION WIDTH 13.7 % (11.5-15.0); WHITE BLOOD COUNT (AUTO) 6.2 K/uL (4.3-11.0)
[2023-01-29 06:49] LABS: ALBUMIN 2.5 g/dL (3.4-5.0); BILIRUBIN,TOTAL 0.2 mg/dL (0.2-1.0); CALCIUM, SERUM 8.1 mg/dL (8.5-10.1); CREATININE 1.2 mg/dL (0.6-1.3); MAGNESIUM 2.1 mg/dL (1.8-2.4); PHOSPHORUS 4.5 mg/dL (2.5-4.9); POTASSIUM 4.3 mmol/L (3.5-5.1); TOTAL PROTEIN, SERUM 5.4 g/dL (6.4-8.2)
[2023-01-29] MEDS: FOLIC ACID 1 MG TABLET PO SCH (08:09)
[2023-01-29] MEDS: ASPIRIN EC 81 MG TABLET.DR PO SCH (08:09)
[2023-01-29] MEDS: PANTOPRAZOLE 40 MG TABLET.DR PO SCH ×2 (08:09→16:28)
[2023-01-29] MEDS: CLOPIDOGREL BISULFATE 75 MG TABLET PO SCH (08:09)
[2023-01-29] MEDS: LEVETIRACETAM (500MG) 500 MG in IV NS 0.9% 100 ML IV SCH (08:30)
[2023-01-29] MEDS ORDERED: LEVE100S PO (09:24)
[2023-01-29] MEDS ORDERED: GADOTERATE MEGLUMINE 5 MMOL/10 ML VIAL IV ONE (14:14)
[2023-01-29] MEDS ORDERED: NIFEDIPINE XL 60 MG TAB.ER.24 PO SCH (18:00)
[2023-01-29] MEDS: LEVETIRACETAM SOL (5 ML) 100 MG/ML UDC PO SCH (20:21)
[2023-01-29] MEDS ORDERED: ACETAMINOPHEN 325 MG TABLET PO PRN (20:30)
[2023-01-29] MEDS: ATORVASTATIN 10 MG TABLET PO SCH (21:00)
[2023-01-29] MEDS: BACLOFEN (10 MG) 10 MG TABLET PO SCH (21:00)
[2023-01-30 04:00] VITALS: BP 141/48; TEMP 98; O2SAT 98
[2023-01-30] MEDS: BLOOD SUGAR DIAGNOSTIC 1 EACH STRIP IN SCH ×2 (06:58→11:35)
[2023-01-30 07:00] VITALS: BP 128/49; TEMP 97.7; O2SAT 96
[2023-01-30] MEDS ORDERED: NIFEDIPINE XL 60 MG TAB.ER.24 PO SCH (07:30)
[2023-01-30 08:06] LABS: IMMUNOGLOBULIN A, SERUM 111 mg/dL (64-422); IMMUNOGLOBULIN G, SERUM 923 mg/dL (586-1602); IMMUNOGLOBULIN M, SERUM 107 mg/dL (26-217)
[2023-01-30] MEDS: PANTOPRAZOLE 40 MG TABLET.DR PO SCH (08:18)
[2023-01-30] MEDS: CLOPIDOGREL BISULFATE 75 MG TABLET PO SCH (08:41)
[2023-01-30] MEDS: LEVETIRACETAM SOL (5 ML) 100 MG/ML UDC PO SCH (08:41)
[2023-01-30] MEDS: ASPIRIN EC 81 MG TABLET.DR PO SCH (08:41)
[2023-01-30] MEDS: FOLIC ACID 1 MG TABLET PO SCH (08:41)
[2023-01-30] MEDS ORDERED: CARVEDILOL 12.5 MG TABLET PO SCH (09:00)
[2023-01-30 15:56] VITALS: BP 130/70; TEMP 97.7; O2SAT 97
[2023-01-31 06:06] LABS: FOLIC ACID > 20.0 ng/mL (>3.0)
[2023-01-31 08:06] LABS: CANCER AG, 15-3 5.8 U/mL (0.0-25.0); FREE KAPPA LT CHAINS SERUM 53.5 mg/L (3.3-19.4); FREE LAMBDA LT CHAIN SERUM 43.6 mg/L (5.7-26.3); KAPPA/LAMBDA RATIO SERUM 1.23 (0.26-1.65)
[2023-01-31 12:07] LABS: *SPE A/G RATIO 1.1 (0.7-1.7); *SPE ALBUMIN 2.7 g/dL (2.9-4.4); *SPE ALPHA-1-GLOBULIN 0.2 g/dL (0.0-0.4); *SPE ALPHA-2-GLOBULIN 0.6 g/dL (0.4-1.0); *SPE BETA GLOBULIN 0.6 g/dL (0.7-1.3); *SPE GLOBULIN, TOTAL 2.4 g/dL (2.2-3.9); *SPE M-SPIKE Not Observed g/dL (Not Observed); *SPE PROTEIN TOTAL 5.1 g/dL (6.0-8.5); *SPEGAMMA GLOBULIN 0.9 g/dL (0.4-1.8)
[2023-02-01 21:06] LABS: *THYROGLOBULIN <1.0 IU/mL (0.0-0.9); THYROGLOBULIN BY IMA 52.5 ng/mL (1.5-38.5)
== END 2023-01-30 15:45 | disposition home health service (06) | DRG 101 ==
LOC: TELE 01:33 → MED 01-29 09:11
PROVIDERS: ADMIT Internal Medicine; ATTEND Internal Medicine
DX: G40.909 Epilepsy, unspecified, not intractable, without status epilepticus (principal); I69.351 Hemiplegia and hemiparesis following cerebral infarction affecting right dominant side; R47.01 Aphasia; I47.10 Supraventricular tachycardia, unspecified; D47.2 Monoclonal gammopathy; D64.9 Anemia, unspecified; E78.5 Hyperlipidemia, unspecified; Z66 Do not resuscitate; I10 Essential (primary) hypertension; J45.909 Unspecified asthma, uncomplicated; F01.50 Vascular dementia, unspecified severity, without behavioral disturbance, psychotic disturbance, mood disturbance, and anxiety; E04.1 Nontoxic single thyroid nodule; M81.0 Age-related osteoporosis without current pathological fracture
CPT/HCPCS: 36415; 70544-TC; 70551-TC; 70553-TC; 71045-TC; 76641-TC; 80048-TC; 80053-TC; 80061-TC; 82232; 82378; 82607-TC; 82728-TC; 82784; 82962-TC; 83540-TC; 83735-TC; 84100-TC; 84155; 84165; 84439-TC; 84443-TC; 85025-TC; 85730-TC; 86300; 86334; 92526; 92611-TC; 93307-TC; 93880-TC; 95819-TC; 97110-TC; 97112-TC; 97530-TC; A4223; A9575; G0378; J1953; J7030; J7050

== ENCOUNTER → 2023-05-05 | Outpatient (CLI) | payer MEDICARE, OTHER ==
[~2023-05-05] MED LIST changes: -ASPI-605 PO; -BACL10TA PO; +CARV12.52 PO; -CLON0.1T PO; +CLOP75TA15 PO; +DOCU100C36 PO; +DULO30CA2 PO; -ETOD400T2 PO; +FAMO40TA7 PO; +FERR325T23 PO; +LEVE100S PO; -METO25TA4 PO; +MONT10TA22 PO; -MYRBETRIQ PO; +NIFE-34 PO; -OMEP40CA21 PO; +PANT40TA49 PO; -SOLI5TAB2 PO; -VALS160T29 PO
== END | disposition home or self-care (01) ==
LOC: MSC 16:00
PROVIDERS: ATTEND Internal Medicine
DX: R05.1 Acute cough (principal); R05.3 Chronic cough; M25.441 Effusion, right hand; N39.0 Urinary tract infection, site not specified; I12.9 Hypertensive chronic kidney disease with stage 1 through stage 4 chronic kidney disease, or unspecified chronic kidney disease; N18.30 Chronic kidney disease, stage 3 unspecified; N17.9 Acute kidney failure, unspecified; I16.1 Hypertensive emergency; R10.31 Right lower quadrant pain; K40.90 Unilateral inguinal hernia, without obstruction or gangrene, not specified as recurrent; G89.29 Other chronic pain; M54.9 Dorsalgia, unspecified; E87.5 Hyperkalemia; K86.2 Cyst of pancreas; G31.84 Mild cognitive impairment of uncertain or unknown etiology; R26.9 Unspecified abnormalities of gait and mobility; K29.70 Gastritis, unspecified, without bleeding